=== PATIENT | male | born 1975 | race Hispanic/Latino ===

== ENCOUNTER 2017-04-07 05:51 | Inpatient (IN) | payer BC, MEDICARE ==
[2017-04-02 10:03] VITALS: BMI 32.3
[2017-04-07] MEDS ORDERED: Propofol 10 mg/ml Inj (20 ML) ONE (07:16)
[2017-04-07] MEDS ORDERED: Absorbable Gelatin Sponge Size 100 ONE (07:17)
[2017-04-07] MEDS ORDERED: ceFAZolin IV 1 gm in Dextrose 2 GM/100 ML BAG IVPB ONE (07:17)
[2017-04-07] MEDS ORDERED: Bupivacaine HCl 0.5% PF (30 ml) Inj ONE (07:17)
[2017-04-07] MEDS ORDERED: Thrombin Topical 5,000 IU Spray Kit ONE (07:17)
[2017-04-07] MEDS ORDERED: Lidocaine 2% MPF (5 ml) Inj ONE (07:17)
[2017-04-07] MEDS ORDERED: Bupivacaine HCl 0.25% PF (30 ml) Inj ONE (07:17)
[2017-04-07] MEDS ORDERED: Midazolam 2 MG/2 ML VIAL ONE (07:17)
[2017-04-07] MEDS ORDERED: Lidocaine 2% w Epi 1:100,000 Inj IJ ONE (07:17)
--- NOTE | 2017-04-07 07:17 | CP.PCM.HP ---
History of Present Illness - History of Present Illness History of Present Illness: This is a 41 yo male who presents with progressive LBP. He has a history of thoracic laminectomy at T8-T9 in which he complains of pain in that area however on work up it is revealed he also has stenosis and compression at L2-3 with associated LE radiculopathy and paresthesias. The patient has attempted conservative management such as injections and physical therapy without relief and wishes for surgical management. He denies significant weakness, bladder or bowel incontinence. Present on Admission - Present on Admission Any Indicators Present on Admission: No Review of Systems - Constitutional Constitutional: As Per HPI - Genitourinary Genitourinary: As Per HPI - Neurological Neurological: As Per HPI Past Patient History - Past Medical History & Family History Past Medical History?: Yes - Past Social History Smoking Status: Never Smoked - CARDIAC Hx Cardiac Disorders: No Hx Congestive Heart Failure: No - PULMONARY Hx Respiratory Disorders: No Hx Chronic Obstructive Pulmonary Disease (COPD): No - NEUROLOGICAL Hx Neurological Disorder: Yes HX Cerebrovascular Accident: No Other/Comment: TINGLING HANDS AND FEET - HEENT Hx HEENT Problems: No - RENAL Hx Chronic Kidney Disease: No Hx Renal Failure: No - ENDOCRINE/METABOLIC Hx Endocrine Disorders: No Hx Diabetes Mellitus Type 1: No Hx Diabetes Mellitus Type 2: No Hx Hypothyroidism: No - HEMATOLOGICAL/ONCOLOGICAL Hx Blood Disorders: No Hx AIDS: No Hx Human Immunodeficiency Virus (HIV): No - INTEGUMENTARY Hx Dermatological Problems: No - MUSCULOSKELETAL/RHEUMATOLOGICAL Hx Musculoskeletal Disorders: Yes Hx Arthritis: No Hx Back Pain: Yes (NECK PAIN) Hx Falls: No Hx Rheumatoid Arthritis: No - GASTROINTESTINAL Hx Gastrointestinal Disorders: No - GENITOURINARY/GYNECOLOGICAL Hx Genitourinary Disorders: No - PSYCHIATRIC Hx Psychophysiologic Disorder: No Hx Substance Use: No - SURGICAL HISTORY Hx Surgeries: Yes Hx Orthopedic Surgery: Yes Other/Comment: THORACIC LAMINECTOMY X3.THRORACIC DISSECTOMY 2015 .CERVICAL SX .MEDIAN NERVE BRANCH BLOCK - ANESTHESIA Hx Anesthesia: Yes Hx Anesthesia Reactions: No Hx Malignant Hyperthermia: No Has any member of the family had a problem w/ anesthesia?: No Meds Allergies/Adverse Reactions: Allergies Allergy/AdvReac Type Severity Reaction Status Date / Time No Known Allergies Allergy Verified 10/01/14 14:49 Physical Exam - Constitutional Additional comments: obese - Neurological Exam Additional comments: A&Ox3 CN intact TAPIA Motor 5/5 throughout pain ilicited with movement of IP . Pos SLR BL sensation intact to LT bL Results - Vital Signs Recent Vital Signs: Last Vital Signs Temp 98.3 F 04/07/17 06:29 Pulse 78 04/07/17 06:31 Resp 20 04/07/17 06:29 BP 144/80 04/07/17 06:29 Pulse Ox 96 04/07/17 06:29 - Imaging and Cardiology MRI L spine Additional comment: L2-L3 compression and stenosis T8-T9 vertebral body signal. Assessment & Plan - Assessment and Plan (Free Text) Assessment: Lumbar stenosis Plan: Plan for L2-L3 decompressive laminectomy Risks and benefits explained to the patient about the above. Imaging reviewed and procedure explained. Risks such as infection, hemorrahge, CSF leak, weakness, sensory loss, failure of surgery and/or need for further surgery explained. All questions answered and he wishes to proceed with surgery.
[2017-04-07] MEDS ORDERED: Succinylcholine 200 mg/10 ml Inj IV ONE (07:19)
[2017-04-07] MEDS ORDERED: Rocuronium 10 mg/ml (5 ml) ONE (07:19)
[2017-04-07] MEDS ORDERED: Lactated Ringer's 1,000 ML IV ONE ×2 (07:40→09:11)
[2017-04-07 07:41] LABS: HEMATOCRIT 38.4 % (35.0-51.0); MEAN CORPUSCULAR HEMOGLOBIN 18.6 pg (27.0-31.0); RED CELL DISTRIBUTION WIDTH 16.5 % (11.5-14.5)
[2017-04-07 07:49] LABS: BLOOD UREA NITROGEN 10 mg/dl (9-20); CARBON DIOXIDE 27 mmol/L (22-30); CHLORIDE 104 mmol/L (98-107); GFR AFRICAN-AMERICAN > 60; GLUCOSE,RANDOM 107 mg/dL (75-110); POTASSIUM 4.1 MMOL/L (3.6-5.0); SODIUM 141 mmol/l (132-148)
[2017-04-07] MEDS ORDERED: Lidocaine 2% w Epi 1:200,000 Pf Inj IJ ONE (08:05)
[2017-04-07 08:06] LABS: PARTIAL THROMBOPLASTIN TIME 33.7 Seconds (25.6-37.1)
[2017-04-07] MEDS ORDERED: HEMOSTATIC MATRIX 10 ML DIS.NEEDLE TOP ONE (08:40)
[2017-04-07] MEDS ORDERED: Thrombin Topical 5,000 IU Spray Kit TOP ONE (08:45)
[2017-04-07] MEDS ORDERED: Absorbable Gelatin Sponge Size 100 TP ONE (08:45)
[2017-04-07] MEDS ORDERED: Bupivacaine 0.5% Inj(30mL) IJ ONE ×2 (08:46→09:18)
[2017-04-07] MEDS ORDERED: Neostigmine Methylsulfate 3mg/3ml Syringe IV ONE (08:53)
--- NOTE | 2017-04-07 09:49 | PCM.SURG1 ---
Surgeon's Initial Post Op Note - Surgeon's Notes Surgeon: Ady Villanueva MD Concrete Truck Driver: Srinath VALENTIN Type of Anesthesia: General Endo Anesthesia Administered By: Paul Pre-Operative Diagnosis: Lumbar stenosis Operative Findings: as above Post-Operative Diagnosis: same Operation Performed: Decompressive lumbar laminectomy L2-L3 Specimen/Specimens Removed: none Estimated Blood Loss: EBL {In ML}: 75 Blood Products Given: N/A Drains Used: Michael Parker (x1 ) Post-Op Condition: Good Date of Surgery/Procedure: 04/07/17 Time of Surgery/Procedure: 07:30
[2017-04-07] MEDS ORDERED: oxyCODONE 5 mg Immediate Release Tab PO PRN (10:04)
[2017-04-07] MEDS: HYDROmorphone 0.5 mg/0.5 ml ISec IVP PRN ×7 (10:09→23:25)
[2017-04-07] MEDS ORDERED: HYDROmorphone 0.5 mg/0.5 ml ISec IVP PRN (11:16)
[2017-04-07] MEDS: Lactated Ringer's 1,000 ML IV SCH ×2 (14:30→21:42)
[2017-04-07] MEDS: ceFAZolin IV 1 gm in Dextrose 1 GM/50 ML BAG IVPB SCH (17:12)
[2017-04-07 21:46] VITALS: RESP 20
[2017-04-07] MEDS ORDERED: Docusate-Senna 50 mg-8.6 mg Tab PO SCH (22:00)
[2017-04-08] MEDS: ceFAZolin IV 1 gm in Dextrose 1 GM/50 ML BAG IVPB SCH ×2 (00:37→09:56)
[2017-04-08] MEDS: Lactated Ringer's 1,000 ML IV SCH ×2 (02:00→06:11)
[2017-04-08] MEDS: HYDROmorphone 0.5 mg/0.5 ml ISec IVP PRN ×2 (06:03→10:23)
[2017-04-08 06:29] LABS: MEAN CELL VOLUME 60.2 fl (80.0-94.0); MEAN CORPUSCULAR HEMOGLOBIN 18.6 pg (27.0-31.0); MEAN CORPUSCULAR HGB CONC 30.9 g/dL (33.0-37.0); RED CELL DISTRIBUTION WIDTH 16.5 % (11.5-14.5); WHITE BLOOD COUNT 12.6 K/uL (4.8-10.8)
[2017-04-08 06:36] LABS: BLOOD UREA NITROGEN 9 mg/dl (9-20); CALCIUM 8.7 mg/dL (8.4-10.2); CARBON DIOXIDE 25 mmol/L (22-30); CHLORIDE 105 mmol/L (98-107); GFR AFRICAN-AMERICAN > 60; GLUCOSE,RANDOM 177 mg/dL (75-110); POTASSIUM 4.7 MMOL/L (3.6-5.0); SODIUM 141 mmol/l (132-148)
[2017-04-08 07:07] LABS: IRON 92 ug/dL (49-181)
[2017-04-08 08:14] VITALS: BP 107/60; PULSE 70; TEMP 97.5; O2SAT 96
--- NOTE | 2017-04-08 08:36 | OP ---
PROCEDURE DATE: 04/07/2017 PREOPERATIVE DIAGNOSIS: Lumbar spondylosis. POSTOPERATIVE DIAGNOSIS: Lumbar spondylosis. PROCEDURES: L2-L3 lumbar laminectomy, L2-L3 posterolateral fusion. SURGEON: Dr. Ady Villanueva. SALES AND MARKETING ADMINISTRATOR: BARBIE Toney. Fluoroscopy has been used, microscope has been used. Srinath Clark is the physician desk assistant who stayed throughout the case from the beginning to the end, helped me perform the surgery. DESCRIPTION OF PROCEDURE: The patient was brought to the operating room, anesthetized with general endotracheal anesthesia, placed in a prone position on a Michael table. Care was taken to protect all the pressure points. Back of the lumbar area thoroughly prepped and draped in the same sterile manner after marking the skin incisions for lumbar laminectomy. After prepping and draping the area, skin has been incised. Bleeding skins had been controlled with bipolar oil burner repairer. After using the Bovie oil burner repairer, the paraspinal muscles had been detached from the attachments of spinous process, lamina of L2-L3. Identification of the levels had been done with the help of fluoroscopy. Deep retractors had been applied. Under microscopic magnification and illumination, the spinous process of 2 and 3 have been removed. By using a high speed drill, the drilling is continued on the lamina of L2 and L3. By using a fine Kerrison punch, thinned out the lamina, medial part of the facets and ligamentum flavum has been removed decompressing the area. After that, lateral aspect of facet joint, transverse process has been decorticated, demineralized bone placed in the area achieving a posterolateral fusion. After that, hemostasis was best achieved. Michael drain was placed on the wound and brought out through a separate stab neck skin incision. Muscles and fascia closed with 1 Vicryl, subcutaneous tissue with 3 Vicryl and skin had been closed with intradermal 3 Vicryl stitches. The patient tolerated the procedure. After procedure, mobilized to recovery room in stabilized condition. Ady Villanueva MD
[2017-04-08] MEDS ORDERED: Enoxaparin 40 mg Syringe SC SCH (09:00)
--- NOTE | 2017-04-08 12:14 | CP.PCM.PCO ---
Assessment & Plan - Assessment and Plan (Free Text) Assessment: 41 yr old M w/ pmhx Lumbar stenosis s/p Decomp L2-L5 laminectomy POD#1 MIKEL drain 50 ml overnight- approximately 10 cc this morning pt. feels well, denies fever, chills, numbness, tingling or weakness MIKEL drain removed, tip intact, surgical site c/d/i site covered with 4x4 tegaderm pt. cleared for discharge to Home today by and pt. will f/u with Dr. Villanueva in 1-2 weeks
--- NOTE | 2017-04-08 13:32 | CP.PCM.DIS ---
Provider - Provider Date of Admission: 04/07/17 09:56 Attending physician: Hayder Ernandez MD Primary care physician: Ady Villanueva MD Time Spent in preparation of Discharge (in minutes): 30 Diagnosis - Discharge Diagnosis (1) Status post lumbar laminectomy Status: Acute Comment: s/p Decompressive lumbar laminectomy L2-L3 on POD #1. f/u with Dr. Villanueva in 1-2 weeks Hospital Course - Lab Results Lab Results: Most Recent Lab Values WBC 12.6 K/uL (4.8-10.8) H D 04/08/17 05:30 RBC 5.81 Mil/uL (4.40-5.90) 04/08/17 05:30 Hgb 10.8 g/dL (12.0-18.0) L 04/08/17 05:30 Hct 35.0 % (35.0-51.0) 04/08/17 05:30 MCV 60.2 fl (80.0-94.0) L 04/08/17 05:30 MCH 18.6 pg (27.0-31.0) L 04/08/17 05:30 MCHC 30.9 g/dL (33.0-37.0) L 04/08/17 05:30 RDW 16.5 % (11.5-14.5) H 04/08/17 05:30 Plt Count 173 K/uL (130-400) 04/08/17 05:30 PT 12.8 Seconds (9.8-13.1) 04/07/17 07:10 INR 1.2 (0.9-1.2) 04/07/17 07:10 APTT 33.7 Seconds (25.6-37.1) 04/07/17 07:10 Sodium 141 mmol/l (132-148) 04/08/17 05:30 Potassium 4.7 MMOL/L (3.6-5.0) 04/08/17 05:30 Chloride 105 mmol/L (98-107) 04/08/17 05:30 Carbon Dioxide 25 mmol/L (22-30) 04/08/17 05:30 Anion Gap 16 (10-20) 04/08/17 05:30 BUN 9 mg/dl (9-20) 04/08/17 05:30 Creatinine 0.6 mg/dl (0.8-1.5) L 04/08/17 05:30 Est GFR ( Amer) > 60 04/08/17 05:30 Est GFR (Non-Af Amer) > 60 04/08/17 05:30 Random Glucose 177 mg/dL (75-110) H 04/08/17 05:30 Calcium 8.7 mg/dL (8.4-10.2) 04/08/17 05:30 Iron 92 ug/dL (49-181) 04/08/17 05:30 TIBC 285 ug/dL (250-450) 04/08/17 05:30 % Saturation 32 % (20-55) 04/08/17 05:30 Ferritin 407.0 ng/Ml (17.9-464) 04/08/17 05:30 Blood Type O POSITIVE 04/07/17 07:10 Antibody Screen Negative 04/07/17 07:10 BBK History Checked Patient has bt 04/07/17 07:10 - Hospital Course Hospital Course: 41 yo male with history of thoracic laminectomy at T8-T9, who presents with stenosis and compression at L2-3 with associated LE radiculopathy and paresthesias admitted for Decompressive lumbar laminectomy L2-L3 by Dr. Villanueva. Patient is doing well on POD #1. Pain well control, afebrile, and VS stable WNL. Patient is stable to be discharge home today and will f/u as outpatient with Dr. Villanueva in 1-2 weeks. Patient seen and examined with attending Dr. Ernandez in [facility] unit this morning. No complains at the time of evaluation. - Date & Time of H&P Date of H&P: 04/07/17 Time of H&P: 07:10 Discharge Exam - Eye Exam Eye Exam: Normal appearance - ENT Exam ENT Exam: Mucous Membranes Moist - Respiratory Exam Respiratory Exam: Clear to PA & Lateral, NORMAL BREATHING PATTERN - Cardiovascular Exam Cardiovascular Exam: REGULAR RHYTHM, RRR, +S1, +S2 - GI/Abdominal Exam GI & Abdominal Exam: Normal Bowel Sounds, Soft. absent: Distended, Guarding, Rebound, Rigid - Neurological Exam Neurological exam: Alert, Oriented x3 - Skin Skin Exam: Dry, Intact, Normal Color Discharge Plan - Follow Up Plan Condition: GOOD Disposition: HOME/ ROUTINE Patient education suggested?: Yes Instructions: Laminectomy (DC) Additional Instructions: May not wet operative area for the next 3 days; follow-up with Dr. Villanueva in 2 weeks Referrals: Ady Villanueva MD [Primary Care Provider] - Hayder Ernandez MD [Staff Provider] -
--- NOTE | 2017-04-09 11:02 | RAD ---
PROCEDURE: Intraoperative Fluoroscopy. HISTORY: LUMBER FINDINGS: Fluoroscopic assistance was provided. Please refer to the operative
== END 2017-04-08 12:38 | disposition home or self-care (01) | DRG 460 ==
LOC: H.OPSURG 05:51 → H.MEDSURG1 09:56
PROVIDERS: ADMIT Family Medicine; ATTEND Family Medicine
PROC: 0SG00J1 Fusion of Lumbar Vertebral Joint with Synthetic Substitute, Posterior Approach, Posterior Column, Open Approach (ICD-10-PCS; principal; 2017-04-07 07:45)
DX: M48.061 Spinal stenosis, lumbar region without neurogenic claudication (principal); M47.26 Other spondylosis with radiculopathy, lumbar region; R20.2 Paresthesia of skin

== ENCOUNTER 2017-08-04 06:06 | Observation (INO) | payer BC, MEDICARE ==
[2017-08-03 15:36] VITALS: BMI 30.3
[2017-08-04 07:11] LABS: BASO # 0.1 K/uL (0.0-0.2); BASO % 0.8 % (0.0-2.0); EOS # 0.2 K/uL (0.0-0.7); EOS % 3.3 % (0.0-4.0); HEMOGLOBIN 12.5 g/dL (12.0-18.0); LYMPH # 2.8 K/uL (1.0-4.3); LYMPH % 38.5 % (20.0-40.0); MEAN CELL VOLUME 58.8 fl (80.0-94.0); MEAN CORPUSCULAR HEMOGLOBIN 19.2 pg (27.0-31.0); MEAN CORPUSCULAR HGB CONC 32.6 g/dL (33.0-37.0); MEAN PLATELET VOLUME 8.7 fl (7.2-11.7); MONO # 0.7 K/uL (0.0-0.8); MONO % 9.3 % (0.0-10.0); NEUT # 3.5 K/uL (1.8-7.0); NEUT % 48.1 % (50.0-75.0); NRBC % 0.1 % (0.0-0.0); RBC 6.53 Mil/uL (4.40-5.90); WHITE BLOOD COUNT 7.2 K/uL (4.8-10.8)
[2017-08-04 07:17] LABS: ALB/GLOB RATIO 1.3 (1.0-2.1); ALBUMIN 4.4 g/dL (3.5-5.0); ALT/SGPT 66 U/L (21-72); AST/SGOT 35 U/L (17-59); BLOOD UREA NITROGEN 18 mg/dl (9-20); CALCIUM 9.3 mg/dL (8.4-10.2); GFR AFRICAN-AMERICAN > 60; GFR NON-AFRICAN AMERICAN > 60
[2017-08-04] MEDS ORDERED: Propofol 10 mg/ml Inj (20 ML) ONE ×2 (07:29→08:57)
[2017-08-04] MEDS ORDERED: Succinylcholine 200 mg/10 ml Inj IV ONE (07:33)
[2017-08-04] MEDS ORDERED: ceFAZolin IV 1 gm in Dextrose 2 GM/100 ML BAG IVPB ONE (07:34)
[2017-08-04] MEDS ORDERED: Lidocaine 1% w Epi 1:100,000 Inj ONE (07:34)
[2017-08-04] MEDS ORDERED: Bupivacaine HCl 0.25% PF (30 ml) Inj ONE (07:34)
[2017-08-04] MEDS ORDERED: Absorbable Gelatin Sponge Size 100 ONE (07:35)
[2017-08-04] MEDS ORDERED: Thrombin Topical 5,000 Int Units Spray Kit ONE (07:35)
[2017-08-04 07:36] LABS: INR 1.2 (0.9-1.2); PROTHROMBIN TIME 12.8 Seconds (9.8-13.1)
--- NOTE | 2017-08-04 07:36 | CP.PCM.CON ---
History of Present Illness - History of Present Illness History of Present Illness: 41 yo right hand dominant handed male with long standing hx spinal stenosis, spondylosis and instability> 10 years and progressively worsening with inability to work,s/p multiple cervical,thoracic and lumbar decompressions with some relief,multiple epidural injections,prescribed meds and ongoing PT with minimal relief,going neck pain radiating to BUE with paresthesias,drops objects, outpt MRI showing recurrent cervical spondylosis and stenosis,denies trauma,LE symptoms,bowel/bladder incontinence. 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 Alcohol: None Drugs: Denies Home Situation {Lives}: With Family Domestic Violence: Negative - CARDIAC Hx Cardiac Disorders: No Hx Congestive Heart Failure: No - PULMONARY Hx Respiratory Disorders: No Hx Chronic Obstructive Pulmonary Disease (COPD): No - NEUROLOGICAL Hx Neurological Disorder: Yes HX Cerebrovascular Accident: No Other/Comment: TINGLING HANDS AND FEET - HEENT Hx HEENT Problems: No - RENAL Hx Chronic Kidney Disease: No Hx Renal Failure: No - ENDOCRINE/METABOLIC Hx Endocrine Disorders: No Hx Diabetes Mellitus Type 1: No Hx Diabetes Mellitus Type 2: No Hx Hypothyroidism: No - HEMATOLOGICAL/ONCOLOGICAL Hx Blood Disorders: No Hx AIDS: No Hx Human Immunodeficiency Virus (HIV): No - INTEGUMENTARY Hx Dermatological Problems: No - MUSCULOSKELETAL/RHEUMATOLOGICAL Hx Musculoskeletal Disorders: Yes Hx Arthritis: No Hx Back Pain: Yes (NECK PAIN) Hx Falls: No Hx Rheumatoid Arthritis: No - GASTROINTESTINAL Hx Gastrointestinal Disorders: No - GENITOURINARY/GYNECOLOGICAL Hx Genitourinary Disorders: No - PSYCHIATRIC Hx Psychophysiologic Disorder: No Hx Substance Use: No - SURGICAL HISTORY Hx Surgeries: Yes Hx Orthopedic Surgery: Yes Other/Comment: THORACIC LAMINECTOMY X3.THRORACIC DISSECTOMY 2015 .CERVICAL SX .MEDIAN NERVE BRANCH BLOCK - ANESTHESIA Hx Anesthesia: Yes Hx Anesthesia Reactions: No Hx Malignant Hyperthermia: No Meds Allergies/Adverse Reactions: Allergies Allergy/AdvReac Type Severity Reaction Status Date / Time No Known Allergies Allergy Verified 08/03/17 15:35 Physical Exam - Constitutional Appears: Well, Non-toxic, No Acute Distress - Head Exam Head Exam: ATRAUMATIC, NORMAL INSPECTION, NORMOCEPHALIC - Eye Exam Eye Exam: EOMI, Normal appearance, PERRL Pupil Exam: NORMAL ACCOMODATION - ENT Exam ENT Exam: Mucous Membranes Moist - Neck Exam Additional comments: healed anterior cervical scar - Respiratory Exam Respiratory Exam: Clear to Auscultation Bilateral, NORMAL BREATHING PATTERN - Cardiovascular Exam Cardiovascular Exam: REGULAR RHYTHM, +S1, +S2 - GI/Abdominal Exam GI & Abdominal Exam: Normal Bowel Sounds, Soft - Rectal Exam Rectal Exam: Deferred - Extremities Exam Extremities exam: Positive for: normal inspection, pedal pulses present - Back Exam Additional comments: healed surgical scars,thoracica nd lumbar tenderness to palpation - Neurological Exam Neurological exam: Alert, Oriented x3 Additional comments: TAPIA x 4 antigravity with BUE weakness 4-5,sensation intact - Psychiatric Exam Psychiatric exam: Normal Affect, Normal Mood - Skin Skin Exam: Dry, Intact, Normal Color Results - Vital Signs Recent Vital Signs: Last Vital Signs Temp 98.1 F 08/04/17 06:30 Pulse 60 08/04/17 06:30 Resp 18 08/04/17 06:30 BP 120/77 08/04/17 06:30 Pulse Ox 96 08/04/17 06:30 - Labs Result Diagrams: 08/04/17 06:40 08/04/17 06:40 Labs: Laboratory Results - last 24 hr 08/04/17 08/04/17 06:40 06:40 WBC 7.2 RBC 6.53 H Hgb 12.5 Hct 38.3 MCV 58.8 L MCH 19.2 L MCHC 32.6 L RDW 17.0 H Plt Count 215 MPV 8.7 Neut % (Auto) 48.1 L Lymph % (Auto) 38.5 Cuming % (Auto) 9.3 Eos % (Auto) 3.3 Baso % (Auto) 0.8 Neut # (Auto) 3.5 Lymph # (Auto) 2.8 Cuming # (Auto) 0.7 Eos # (Auto) 0.2 Baso # (Auto) 0.1 Sodium 142 Potassium 4.4 Chloride 103 Carbon Dioxide 27 Anion Gap 16 BUN 18 Creatinine 0.7 L Est GFR ( Amer) > 60 Est GFR (Non-Af Amer) > 60 Random Glucose 102 Calcium 9.3 Total Bilirubin 0.7 AST 35 ALT 66 Alkaline Phosphatase 56 Total Protein 7.8 Albumin 4.4 Globulin 3.4 Albumin/Globulin Ratio 1.3 Assessment & Plan - Assessment and Plan (Free Text) Assessment: 41 yo male with Recurrent Cervical C5-C6 Spondylosis, BUE Myelopathy, longstanding hx spinal stenosis Plan: Risks and benefits of surgery d/w pt, expressed understanding and wishes to proceed here for proposed C5-C6 Posterior Cervical Decompression with Dr. Villanueva. - Date & Time Date: 08/04/17 Time: 07:00
[2017-08-04 07:37] LABS: PARTIAL THROMBOPLASTIN TIME 35.8 Seconds (25.6-37.1)
[2017-08-04] MEDS ORDERED: Lactated Ringer's 1,000 ML IV ONE (07:50)
[2017-08-04] MEDS ORDERED: Rocuronium 10 mg/ml (5 ml) ONE ×2 (08:00→08:16)
[2017-08-04] MEDS ORDERED: Esmolol 100 mg/10ml Inj IV ONE (08:08)
[2017-08-04] MEDS ORDERED: Lidocaine 1% w Epi 1:100,000 Inj INJ ONE (08:15)
[2017-08-04] MEDS ORDERED: Neostigmine 1:1000 (1 mg/ml) Inj ONE (08:37)
[2017-08-04] MEDS ORDERED: HEMOSTATIC MATRIX 10 ML DIS.NEEDLE TOP ONE (08:40)
[2017-08-04] MEDS ORDERED: Thrombin Topical 5,000 Int Units Spray Kit TOP ONE (08:45)
[2017-08-04] MEDS ORDERED: Absorbable Gelatin Sponge Size 100 TP ONE (08:45)
[2017-08-04] MEDS ORDERED: Naloxone 0.4 mg/ml Inj (Adult) ONE (08:53)
[2017-08-04] MEDS ORDERED: Bupivacaine HCl 0.25% PF (30 ml) Inj IJ ONE (09:00)
[2017-08-04] MEDS ORDERED: Dexamethasone 4 mg/1 ml ONE (09:04)
[2017-08-04] MEDS ORDERED: Trimethobenzamide 200 mg/2 mL Inj IM PRN (09:19)
[2017-08-04] MEDS ORDERED: Morphine 4 MG/ML VIAL ONE ×4 (09:27→10:15)
[2017-08-04] MEDS ORDERED: Dexamethasone 4 MG in Sodium Chloride 0.9% 50 ML IVPB SCH (10:00)
[2017-08-04] MEDS ORDERED: Morphine 4 MG/ML VIAL IVP PRN (10:30)
[2017-08-04] MEDS: Lactated Ringer's 1,000 ML IV SCH ×3 (11:09→21:24)
--- NOTE | 2017-08-04 12:16 | CP.PCM.HP ---
<Apolinar Siddiqui - Last Filed: 08/04/17 12:08> History of Present Illness - History of Present Illness History of Present Illness: CC: s/p cervical decompression C5-C6 HPI: 41 y/o man w/ pmh of spinal stenosis, spondylosis, and s/p multiple cervical,thoracic and lumbar decompressions presents for cervical decompression of C5-C6. The patient has had multiple epidural injections, prescribed medications, and ongoing PT with minimal relief. Patient has ongoing neck pain radiating to bilateral upper extremities with paresthesias, also drops objects. Patient had MRI showing recurrent cervical spondylosis and stenosis. Patient denies trauma, LE symptoms, bowel/bladder incontinence. The patient denies headaches, chest pain, SOB, abdominal pain, nausea, vomiting, diarrhea, or dysuria. Patient reports pain and discomfort at surgery site. PMD: Dr. Gregg Crawley ([place]) PMH: spinal stenosis, spondylosis meds: see med list PSH: x2 cervical decompressions, x7 thoracic decompressions, x2 lumbar decompressions Fam: denies SOC: denies smoking, alcohol, and drugs ROS: 12 points assessed and negative unless otherwise reported in HPI Present on Admission - Present on Admission Any Indicators Present on Admission: No History of DVT/PE: No History of Uncontrolled Diabetes: No Urinary Catheter: No Decubitus Ulcer Present: No Review of Systems - Review of Systems All systems: reviewed and no additional remarkable complaints except - Constitutional Constitutional: absent: Chills, Fever - EENT Eyes: absent: Change in Vision - Cardiovascular Cardiovascular: absent: Chest Pain, Irregular Heart Rhythm, Pedal Edema - Respiratory Respiratory: absent: Dyspnea, Wheezing - Gastrointestinal Gastrointestinal: absent: Abdominal Pain, Diarrhea, Nausea, Vomiting - Genitourinary Genitourinary: absent: Dysuria - Integumentary Integumentary: absent: Rash - Neurological Neurological: absent: Dizziness, Headaches, Vertigo Past Patient History - Infectious Disease Hx of Infectious Diseases: None - Tetanus Immunizations Tetanus Immunization: Unknown - Past Medical History & Family History Past Medical History?: Yes - Past Social History Smoking Status: Never Smoked Cigar Use: No 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 Alcohol: None Drugs: Denies Home Situation {Lives}: With Family Domestic Violence: Negative - CARDIAC Hx Cardiac Disorders: No Hx Congestive Heart Failure: No - PULMONARY Hx Respiratory Disorders: No Hx Chronic Obstructive Pulmonary Disease (COPD): No - NEUROLOGICAL Hx Neurological Disorder: Yes HX Cerebrovascular Accident: No Other/Comment: TINGLING HANDS AND FEET - HEENT Hx HEENT Problems: No - RENAL Hx Chronic Kidney Disease: No Hx Renal Failure: No - ENDOCRINE/METABOLIC Hx Endocrine Disorders: No Hx Diabetes Mellitus Type 1: No Hx Diabetes Mellitus Type 2: No Hx Hypothyroidism: No - HEMATOLOGICAL/ONCOLOGICAL Hx Blood Disorders: No Hx AIDS: No Hx Human Immunodeficiency Virus (HIV): No - INTEGUMENTARY Hx Dermatological Problems: No - MUSCULOSKELETAL/RHEUMATOLOGICAL Hx Musculoskeletal Disorders: Yes Hx Arthritis: No Hx Back Pain: Yes (NECK PAIN) Hx Falls: No Hx Rheumatoid Arthritis: No - GASTROINTESTINAL Hx Gastrointestinal Disorders: No - GENITOURINARY/GYNECOLOGICAL Hx Genitourinary Disorders: No - PSYCHIATRIC Hx Psychophysiologic Disorder: No Hx Substance Use: No - SURGICAL HISTORY Hx Surgeries: Yes Hx Orthopedic Surgery: Yes Other/Comment: THORACIC LAMINECTOMY X3.THRORACIC DISSECTOMY 2015 .CERVICAL SX .MEDIAN NERVE BRANCH BLOCK - ANESTHESIA Hx Anesthesia: Yes Hx Anesthesia Reactions: No Hx Malignant Hyperthermia: No Meds Allergies/Adverse Reactions: Allergies Allergy/AdvReac Type Severity Reaction Status Date / Time No Known Allergies Allergy Verified 08/03/17 15:35 Physical Exam - Constitutional Appears: Non-toxic, No Acute Distress - Head Exam Head Exam: NORMAL INSPECTION, NORMOCEPHALIC Additional comments: s/p cervical decompressions C5-C6, has neck collar support on, has MIKEL drain ( draining 25-30cc serosanguinous fluid) - Eye Exam Eye Exam: Normal appearance - ENT Exam ENT Exam: Mucous Membranes Moist - Neck Exam Neck exam: Negative for: Full Rom, Tenderness Additional comments: patient wearing neck support collar - Respiratory Exam Respiratory Exam: Clear to Auscultation Bilateral. absent: Accessory Muscle Use , Decreased Breath Sounds, Rales, Rhonchi, Wheezes, Respiratory Distress - Cardiovascular Exam Cardiovascular Exam: REGULAR RHYTHM. absent: Tachycardia - GI/Abdominal Exam GI & Abdominal Exam: Normal Bowel Sounds, Soft. absent: Distended, Tenderness - Extremities Exam Extremities exam: Positive for: normal inspection. Negative for: calf tenderness, pedal edema, tenderness - Neurological Exam Neurological exam: Alert, Oriented x3 - Skin Skin Exam: Dry, Intact, Normal Color, Warm Results - Vital Signs Recent Vital Signs: Last Vital Signs Temp 97.6 F 08/04/17 09:55 Pulse 59 L 08/04/17 10:55 Resp 20 08/04/17 10:55 BP 138/76 08/04/17 10:55 Pulse Ox 99 08/04/17 10:55 - Labs Result Diagrams: 08/04/17 06:40 08/04/17 06:40 Labs: Laboratory Results - last 24 hr 08/04/17 08/04/17 08/04/17 06:40 06:40 06:40 WBC 7.2 RBC 6.53 H Hgb 12.5 Hct 38.3 MCV 58.8 L MCH 19.2 L MCHC 32.6 L RDW 17.0 H Plt Count 215 MPV 8.7 Neut % (Auto) 48.1 L Lymph % (Auto) 38.5 Holmes % (Auto) 9.3 Eos % (Auto) 3.3 Baso % (Auto) 0.8 Neut # (Auto) 3.5 Lymph # (Auto) 2.8 Holmes # (Auto) 0.7 Eos # (Auto) 0.2 Baso # (Auto) 0.1 PT 12.8 INR 1.2 APTT 35.8 Sodium 142 Potassium 4.4 Chloride 103 Carbon Dioxide 27 Anion Gap 16 BUN 18 Creatinine 0.7 L Est GFR ( Amer) > 60 Est GFR (Non-Af Amer) > 60 Random Glucose 102 Calcium 9.3 Total Bilirubin 0.7 AST 35 ALT 66 Alkaline Phosphatase 56 Total Protein 7.8 Albumin 4.4 Globulin 3.4 Albumin/Globulin Ratio 1.3 Blood Type Antibody Screen BBK History Checked 08/04/17 06:40 WBC RBC Hgb Hct MCV MCH MCHC RDW Plt Count MPV Neut % (Auto) Lymph % (Auto) Holmes % (Auto) Eos % (Auto) Baso % (Auto) Neut # (Auto) Lymph # (Auto) Holmes # (Auto) Eos # (Auto) Baso # (Auto) PT INR APTT Sodium Potassium Chloride Carbon Dioxide Anion Gap BUN Creatinine Est GFR ( Amer) Est GFR (Non-Af Amer) Random Glucose Calcium Total Bilirubin AST ALT Alkaline Phosphatase Total Protein Albumin Globulin Albumin/Globulin Ratio Blood Type O POSITIVE Antibody Screen Negative BBK History Checked Patient has bt Assessment & Plan (1) S/P laminectomy Status: Acute (2) Chronic pain disorder Status: Chronic - Assessment and Plan (Free Text) Plan: c/w present management s/p cervical laminectomy C5-C6 MIKEL drain produced 25-30cc serosanguinous fluid pain management - flexeril 10 mg PO TID prn - fentanyl patch 100 mcg/hr Q3d - 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
[2017-08-04] MEDS ORDERED: FENTANYL IV SCH (12:30)
[2017-08-04] MEDS: Dexamethasone 4 mg/1 ml IVP SCH (16:36)
[2017-08-04] MEDS: ceFAZolin 2 GM in Sodium Chloride 0.9% 100 ML IVPB SCH (16:36)
--- NOTE | 2017-08-04 17:01 | RAD ---
PROCEDURE: HISTORY: As above COMPARISON: None TECHNIQUE: Total fluoroscopic time utilized during the procedure: 7.4 seconds ; 1.53 mGy cm 2 FINDINGS: Submitted images from the current procedure: 1 Please refer to the physician's notes performing the procedure. IMPRESSION: Less than 1 hour fluoroscopic time utilized during performance of the procedure
[2017-08-05] MEDS: ceFAZolin 2 GM in Sodium Chloride 0.9% 100 ML IVPB SCH ×2 (01:40→09:37)
[2017-08-05] MEDS: Dexamethasone 4 mg/1 ml IVP SCH ×2 (01:50→09:38)
[2017-08-05] MEDS: Lactated Ringer's 1,000 ML IV SCH (01:51)
[2017-08-05 08:52] VITALS: BP 147/80; PULSE 65; RESP 20; TEMP 98.2; O2SAT 94
[2017-08-05] MEDS ORDERED: Enoxaparin 40 mg Syringe SC SCH (09:00)
--- NOTE | 2017-08-05 09:13 | CP.PCM.PN ---
Subjective - Date & Time of Evaluation Date of Evaluation: 08/05/17 Time of Evaluation: 09:13 - Subjective Subjective: Patient was seen and examined at bedside comfortable. Pain well controlled. Able to get OOB to ambulate w/o difficulty. No acute events overnight. Patient wishes to be discharged to home today. Objective - Vital Signs/Intake and Output Vital Signs (last 24 hours): Temp Pulse Resp BP Pulse Ox 98.2 F 65 20 147/80 94 L 08/05/17 08:51 08/05/17 08:51 08/05/17 08:51 08/05/17 08:51 08/05/17 08:51 Intake and Output: 08/05/17 08/05/17 06:59 18:59 Intake Total 1740 Output Total 2560 Balance -820 - Medications Medications: Current Medications Acetaminophen (Tylenol 325mg Tab) 650 mg PO Q4 PRN PRN Reason: Fever 101 degrees fahrenheit Cyclobenzaprine HCl (Flexeril) 10 mg PO TID PRN PRN Reason: Muscle spasm Dexamethasone (Decadron Inj) 4 mg IVP Q8 [facility] Last Admin: 08/05/17 01:50 Dose: 4 mg Docusate Sodium (Colace) 100 mg PO BID [facility] Last Admin: 08/04/17 16:36 Dose: 100 mg Enoxaparin Sodium (Lovenox) 40 mg SC DAILY [facility] PRN Reason: Protocol Fentanyl (Duragesic) 1 patch TD Q3D RAY PRN Reason: Protocol Last Admin: 08/05/17 07:22 Dose: 1 patch Cefazolin Sodium 2 gm/ Sodium (Chloride) 100 mls @ 100 mls/hr IVPB Q8 RAY PRN Reason: Protocol Stop: 08/07/17 17:59 Last Admin: 08/05/17 01:40 Dose: 100 mls/hr Lactated Ringer's (Lactated Ringer's) 1,000 mls @ 125 mls/hr IV .Q8H [facility] Last Admin: 08/05/17 01:51 Dose: Not Given Morphine Sulfate (Morphine [employer] 1 Mg/Ml) 30 mg IV Q4 PRN; Protocol PRN Reason: Pain, severe (8-10) Stop: 08/06/17 02:13 Last Admin: 08/05/17 02:39 Dose: 30 mg Trimethobenzamide HCl (Tigan) 200 mg IM Q8 PRN PRN Reason: Nausea/Vomiting - Labs Labs: 08/04/17 06:40 08/04/17 06:40 PT 12.8 Seconds (9.8-13.1) 08/04/17 06:40 INR 1.2 (0.9-1.2) 08/04/17 06:40 APTT 35.8 Seconds (25.6-37.1) 08/04/17 06:40 - Neck Exam Additional comments: -mild tenderness globally secondary to surgery. dressings clean and dry, wound c /d/i. Drain in place with mild sangiunous fluid output (160cc) overnight, ROM slightly restricted secondary to pain. sensation and motor intact MN/UN/RN. radial pulses intact Assessment and Plan (1) Cervical spondylosis with myelopathy Assessment & Plan: POD#1 C5-C6 posterior decompression -High drain output, will keep in and allow patient to be discharged home -patient will return to office tomorrow for follow up and will have drain removed by Dr. Villanueva -pain control with narcotics and muscle relaxants -continue outpt abx with keflex while drain is in -Encourage OOB -above d/w Dr. Villanueva in agreement Status: Acute
--- NOTE | 2017-08-05 09:59 | OP ---
PROCEDURE DATE: 08/04/2017 PREOPERATIVE DIAGNOSIS: Cervical spondylosis. POSTOPERATIVE DIAGNOSIS: Cervical spondylosis. PROCEDURE: C5-6 cervical laminectomy, decompression, head control clerk has been used, microscope has been used. SURGEON: Ady Villanueva MD NATURAL RESOURCES EXTENSION EDUCATOR: BARBIE Xiao. [place] is a physician chiropractic assistant who helped me perform the surgery from the beginning to the end. DESCRIPTION OF PROCEDURE: The patient was brought to the operating room, anesthetized with general endotracheal anesthesia. The head was placed in a 3-pin Diaz head control clerk. The patient was placed in a prone position. The head control clerk had been clamped to the bed. Care was taken to protect all the pressure points. Back of the cervical area thoroughly prepped and draped in same sterile manner after marking was consistent for cervical laminectomy. After prepping and draping, the skin has been incised. Bleeding skins have been controlled with bipolar mica miner. After using a Bovie mica miner, paraspinal muscles have been detached, attachments of spinous process, lamina of C5-6, deep retractors have been applied. Identification of levels has been done with the help of fluoroscopy. Microscope has been brought in, rest of the operation carried with microscopic magnification and illumination. At this point, by using a Leksell rongeur, the spinous process of C5-6 has been removed. By using THE high-speed drill, the lamina of C5-6 drilled to actual thickness. By using a fine Kerrison punch, thinned out the lamina, medial part of the facets and ligamentum flavum has been removed, decompressing this area. After that hemostasis was best achieved. Michael drain was placed in the wound, brought out through a separate stab neck skin incision. Muscles and fascia were closed with 1 Vicryl, subcutaneous tissue with 3 Vicryl and skin had been with intradermal 3 Vicryl stitches. The patient tolerated the procedure, and after procedure, mobilized to the recovery room in stabilized condition. Ady Villanueva MD
--- NOTE | 2017-08-05 12:31 | CP.PCM.DIS ---
<Apolinar Siddiqui - Last Filed: 08/05/17 12:26> Provider - Provider Date of Admission: 08/04/17 14:03 Attending physician: Hayder Ernandez MD Primary care physician: Ady Villanueva MD Time Spent in preparation of Discharge (in minutes): 15 Diagnosis - Discharge Diagnosis (1) S/P laminectomy Status: Acute (2) Chronic pain disorder Status: Chronic Hospital Course - Lab Results Lab Results: Most Recent Lab Values WBC 7.2 K/uL (4.8-10.8) 08/04/17 06:40 RBC 6.53 Mil/uL (4.40-5.90) H 08/04/17 06:40 Hgb 12.5 g/dL (12.0-18.0) 08/04/17 06:40 Hct 38.3 % (35.0-51.0) 08/04/17 06:40 MCV 58.8 fl (80.0-94.0) L 08/04/17 06:40 MCH 19.2 pg (27.0-31.0) L 08/04/17 06:40 MCHC 32.6 g/dL (33.0-37.0) L 08/04/17 06:40 RDW 17.0 % (11.5-14.5) H 08/04/17 06:40 Plt Count 215 K/uL (130-400) 08/04/17 06:40 MPV 8.7 fl (7.2-11.7) 08/04/17 06:40 Neut % (Auto) 48.1 % (50.0-75.0) L 08/04/17 06:40 Lymph % (Auto) 38.5 % (20.0-40.0) 08/04/17 06:40 Hardee % (Auto) 9.3 % (0.0-10.0) 08/04/17 06:40 Eos % (Auto) 3.3 % (0.0-4.0) 08/04/17 06:40 Baso % (Auto) 0.8 % (0.0-2.0) 08/04/17 06:40 Neut # (Auto) 3.5 K/uL (1.8-7.0) 08/04/17 06:40 Lymph # (Auto) 2.8 K/uL (1.0-4.3) 08/04/17 06:40 Hardee # (Auto) 0.7 K/uL (0.0-0.8) 08/04/17 06:40 Eos # (Auto) 0.2 K/uL (0.0-0.7) 08/04/17 06:40 Baso # (Auto) 0.1 K/uL (0.0-0.2) 08/04/17 06:40 PT 12.8 Seconds (9.8-13.1) 08/04/17 06:40 INR 1.2 (0.9-1.2) 08/04/17 06:40 APTT 35.8 Seconds (25.6-37.1) 08/04/17 06:40 Sodium 142 mmol/l (132-148) 08/04/17 06:40 Potassium 4.4 MMOL/L (3.6-5.0) 08/04/17 06:40 Chloride 103 mmol/L (98-107) 08/04/17 06:40 Carbon Dioxide 27 mmol/L (22-30) 08/04/17 06:40 Anion Gap 16 (10-20) 08/04/17 06:40 BUN 18 mg/dl (9-20) 08/04/17 06:40 Creatinine 0.7 mg/dl (0.8-1.5) L 08/04/17 06:40 Est GFR ( Amer) > 60 08/04/17 06:40 Est GFR (Non-Af Amer) > 60 08/04/17 06:40 Random Glucose 102 mg/dL (75-110) 08/04/17 06:40 Calcium 9.3 mg/dL (8.4-10.2) 08/04/17 06:40 Total Bilirubin 0.7 mg/dl (0.2-1.3) 08/04/17 06:40 AST 35 U/L (17-59) 08/04/17 06:40 ALT 66 U/L (21-72) 08/04/17 06:40 Alkaline Phosphatase 56 U/L (38-126) 08/04/17 06:40 Total Protein 7.8 G/DL (6.3-8.2) 08/04/17 06:40 Albumin 4.4 g/dL (3.5-5.0) 08/04/17 06:40 Globulin 3.4 gm/dL (2.2-3.9) 08/04/17 06:40 Albumin/Globulin Ratio 1.3 (1.0-2.1) 08/04/17 06:40 Blood Type O POSITIVE 08/04/17 06:40 Antibody Screen Negative 08/04/17 06:40 BBK History Checked Patient has bt 08/04/17 06:40 - Hospital Course Hospital Course: 41 y/o man w/ pmh of spinal stenosis, spondylosis, and s/p multiple cervical, thoracic and lumbar decompressions presents for cervical decompression of C5- C6. Patient recovering well POD1. BURKE drain has minimal drainage. Patient reports is ambulatory and has gas/bowel movement this morning. Patient recovering appropriately after procedure. Patient denies trauma, LE symptoms, bowel/bladder incontinence. The patient denies headaches, chest pain, SOB, abdominal pain, nausea, vomiting, diarrhea, or dysuria. Patient reports mild pruritus at surgery site. The patient has been seen, examined, and deemed medically fit for discharge home. Patient will be DC'ed w/ BURKE drain that will be evaluated by Dr. Villanueva in his office tomorrow. The patient will be discharge w/ cephalexin 500 mg PO TID for 2 days, flexeril 10 mg PO TID for 7 days, and hydrocortisone 2.5% topical cream. Discharge Exam - Head Exam Head Exam: NORMAL INSPECTION, NORMOCEPHALIC Additional comments: s/p cervical decompressions C5-C6, has neck collar support on, has BURKE drain ( draining 5-10cc serosanguinous fluid) - Eye Exam Eye Exam: Normal appearance - ENT Exam ENT Exam: Mucous Membranes Moist - Neck Exam Additional comments: patient wearing neck support collar - Respiratory Exam Respiratory Exam: Clear to PA & Lateral, NORMAL BREATHING PATTERN. absent: Accessory Muscle Use, Decreased Breath Sounds, Rales, Rhonchi, Wheezes, Respiratory Distress - Cardiovascular Exam Cardiovascular Exam: REGULAR RHYTHM. absent: Tachycardia - GI/Abdominal Exam GI & Abdominal Exam: Normal Bowel Sounds, Soft. absent: Diminished Bowel Sounds , Tenderness - Extremities Exam Extremities exam: normal inspection - Neurological Exam Neurological exam: Alert, Normal Gait, Oriented x3 - Skin Skin Exam: Dry, Intact, Normal Color, Warm Discharge Plan - Discharge Medications Prescriptions: Cephalexin [cephalexin] 500 mg PO TID #6 cap Cyclobenzaprine [Flexeril] 10 mg PO TID PRN #21 tab PRN Reason: Muscle Spasm - Follow Up Plan Condition: GOOD Instructions: Michael-Parker Drain, Laminectomy (DC) Additional Instructions: follow up with your primary MD Dr. Gregg Crawley 1week pt. cleared for discharge to home today by and - pt. to be d/c with burke drain as per dr Villanueva- pt. will see dr Marija Villanueva in office tomorrow rx for meds provided I was present during evaluation and discussed with Dr Siddiqui re plans of care and mgt. Hayder Ernandez M.D. Referrals: Ady Villanueva MD [Primary Care Provider] - <Hayder Ernandez - Last Filed: 08/05/17 21:45> Provider - Provider Date of Admission: 08/04/17 14:03 Attending physician: Hayder Ernandez MD Primary care physician: Ady Villanueva MD Hospital Course - Lab Results Lab Results: Most Recent Lab Values WBC 7.2 K/uL (4.8-10.8) 08/04/17 06:40 RBC 6.53 Mil/uL (4.40-5.90) H 08/04/17 06:40 Hgb 12.5 g/dL (12.0-18.0) 08/04/17 06:40 Hct 38.3 % (35.0-51.0) 08/04/17 06:40 MCV 58.8 fl (80.0-94.0) L 08/04/17 06:40 MCH 19.2 pg (27.0-31.0) L 08/04/17 06:40 MCHC 32.6 g/dL (33.0-37.0) L 08/04/17 06:40 RDW 17.0 % (11.5-14.5) H 08/04/17 06:40 Plt Count 215 K/uL (130-400) 08/04/17 06:40 MPV 8.7 fl (7.2-11.7) 08/04/17 06:40 Neut % (Auto) 48.1 % (50.0-75.0) L 08/04/17 06:40 Lymph % (Auto) 38.5 % (20.0-40.0) 08/04/17 06:40 Hardee % (Auto) 9.3 % (0.0-10.0) 08/04/17 06:40 Eos % (Auto) 3.3 % (0.0-4.0) 08/04/17 06:40 Baso % (Auto) 0.8 % (0.0-2.0) 08/04/17 06:40 Neut # (Auto) 3.5 K/uL (1.8-7.0) 08/04/17 06:40 Lymph # (Auto) 2.8 K/uL (1.0-4.3) 08/04/17 06:40 Hardee # (Auto) 0.7 K/uL (0.0-0.8) 08/04/17 06:40 Eos # (Auto) 0.2 K/uL (0.0-0.7) 08/04/17 06:40 Baso # (Auto) 0.1 K/uL (0.0-0.2) 08/04/17 06:40 PT 12.8 Seconds (9.8-13.1) 08/04/17 06:40 INR 1.2 (0.9-1.2) 08/04/17 06:40 APTT 35.8 Seconds (25.6-37.1) 08/04/17 06:40 Sodium 142 mmol/l (132-148) 08/04/17 06:40 Potassium 4.4 MMOL/L (3.6-5.0) 08/04/17 06:40 Chloride 103 mmol/L (98-107) 08/04/17 06:40 Carbon Dioxide 27 mmol/L (22-30) 08/04/17 06:40 Anion Gap 16 (10-20) 08/04/17 06:40 BUN 18 mg/dl (9-20) 08/04/17 06:40 Creatinine 0.7 mg/dl (0.8-1.5) L 08/04/17 06:40 Est GFR ( Amer) > 60 08/04/17 06:40 Est GFR (Non-Af Amer) > 60 08/04/17 06:40 Random Glucose 102 mg/dL (75-110) 08/04/17 06:40 Calcium 9.3 mg/dL (8.4-10.2) 08/04/17 06:40 Total Bilirubin 0.7 mg/dl (0.2-1.3) 08/04/17 06:40 AST 35 U/L (17-59) 08/04/17 06:40 ALT 66 U/L (21-72) 08/04/17 06:40 Alkaline Phosphatase 56 U/L (38-126) 08/04/17 06:40 Total Protein 7.8 G/DL (6.3-8.2) 08/04/17 06:40 Albumin 4.4 g/dL (3.5-5.0) 08/04/17 06:40 Globulin 3.4 gm/dL (2.2-3.9) 08/04/17 06:40 Albumin/Globulin Ratio 1.3 (1.0-2.1) 08/04/17 06:40 Blood Type O POSITIVE 08/04/17 06:40 Antibody Screen Negative 08/04/17 06:40 BBK History Checked Patient has bt 08/04/17 06:40
== END 2017-08-05 13:26 | disposition home or self-care (01) ==
LOC: H.OPSURG 06:06 → UNDOADMOB 14:03 → INTOOBSV 14:03 → H.MEDSURG1 14:03 → UNDODISOB 08-05 13:26
PROVIDERS: ADMIT Family Medicine; ATTEND Family Medicine
DX: M47.12 Other spondylosis with myelopathy, cervical region (principal); L29.9 Pruritus, unspecified; G89.29 Other chronic pain
CPT/HCPCS: 36415; 63001; 80053; 85025; 85610; 85730; 86850; 86900; 97161; G0378; G8978; G8979; G8980; J0330; J0690; J1100; J1170; J1650; J2001; J2270; J2274; J2310; J2704; J2710; J2765; J3010; J7030; J7120

== ENCOUNTER 2018-08-16 08:12 | Inpatient (IN) | payer BC, MEDICARE ==
[2018-08-16 08:15] VITALS: BMI 31.6
--- NOTE | 2018-08-16 08:47 | ED PDOC ---
HPI: Back Time Seen by Provider: 08/16/18 08:40 Chief Complaint (Nursing): Back Pain Chief Complaint (Provider): Back Pain History Per: Patient History/Exam Limitations: no limitations Onset/Duration Of Symptoms: Days Current Symptoms Are (Timing): Still Present Quality Of Discomfort: "Pain" Additional Complaint(s): 42 year old male with HTN presents to the ED complaining of upper back pain and neck pain. The pain is worsening since onset. Otherwise, patient denies fever, chest pain, abdominal pain, constipation, dysuria, frequency, incontinence, weakness, numbness or tingling. PMD: Hayder Ernandez Surgeon: Dr. Villanueva Past Medical History Reviewed: Historical Data, Nursing Documentation, Vital Signs Vital Signs: Last Vital Signs Temp 98.3 F 08/16/18 08:15 Pulse 77 08/16/18 08:15 Resp 16 08/16/18 08:15 BP 157/81 H 08/16/18 08:15 Pulse Ox 100 08/16/18 08:15 - Medical History PMH: HTN Denies: Arthritis, CHF, COPD, HIV, Hypothyroidism, Chronic Kidney Disease, Rheumatoid Arthritis - Surgical History Surgical History: Back Surgery - Family History Family History: States: Unknown Family Hx - Social History Current smoker - smoking cessation education provided: No Alcohol: None Drugs: Denies - Home Medications Home Medications: Ambulatory Orders Medication Instructions Recorded Cyclobenzaprine [Flexeril] 10 mg PO TID PRN #21 tab 08/05/17 Lisinopril [Zestril] 10 mg PO DAILY 08/16/18 fentaNYL 75 mcg/hr [Duragesic 1 patch TD Q72H 08/16/18 Patch 75 mcg/hr] - Allergies Allergies/Adverse Reactions: Allergies Allergy/AdvReac Type Severity Reaction Status Date / Time No Known Allergies Allergy Verified 08/03/17 15:35 Review of Systems ROS Statement: Except As Marked, All Systems Reviewed And Found Negative Constitutional: Negative for: Fever Cardiovascular: Negative for: Chest Pain Respiratory: Negative for: Shortness of Breath Gastrointestinal: Negative for: Abdominal Pain, Constipation Genitourinary Male: Negative for: Dysuria, Frequency, Incontinence Musculoskeletal: Positive for: Neck Pain, Back Pain (upper) Neurological: Negative for: Weakness, Numbness, Other (tingling ) Physical Exam - Reviewed Nursing Documentation Reviewed: Yes Vital Signs Reviewed: Yes - Physical Exam Appears: Positive for: Non-toxic, No Acute Distress Head Exam: Positive for: ATRAUMATIC, NORMAL INSPECTION, NORMOCEPHALIC Skin: Positive for: Normal Color, Warm, Dry. Negative for: Rash Eye Exam: Positive for: EOMI, Normal appearance, PERRL ENT: Positive for: Normal ENT Inspection Neck: Positive for: Normal, Painless ROM Cardiovascular/Chest: Positive for: Regular Rate, Rhythm. Negative for: Murmur Respiratory: Positive for: Normal Breath Sounds. Negative for: Respiratory Distress Gastrointestinal/Abdominal: Positive for: Normal Exam, Soft. Negative for: Tenderness Back: Positive for: Other (mild tenderness across upper back ) Extremity: Positive for: Normal ROM. Negative for: Tenderness, Pedal Edema, Deformity Neurological/Psych: Positive for: Awake, Alert, Normal Tone, Oriented (x3) - Laboratory Results Result Diagrams: 08/16/18 10:06 08/16/18 10:06 - ECG O2 Sat by Pulse Oximetry: 100 (RA) Pulse Ox Interpretation: Normal - Progress ED Course And Treament: 900: Spoke with [facility] for Dr. Ernandez who will admit. Medical Decision Making Medical Decision Making: Time: 0840 Impression: Back Pain Plan: Cervical spine w/o contrast CT EKG CMP Torponin Heart Healthy Diet CBC w/ differential PTT Prothrombin Time Normal Saline 100 mls/hr Toradol 15mg Nursing communication as ordered Reevaluation 11:18 PROCEDURE: CT Cervical Spine without contrast HISTORY: neck pain COMPARISON: None available. TECHNIQUE: Axial computed tomography images were obtained of the cervical spine without the use of intravenous contrast. Coronal and sagittal reformatted images were created and reviewed. Radiation dose: Total exam DLP = 354.47 mGy-cm. This CT exam was performed using one or more of the following dose reduction techniques: Automated exposure control, adjustment of the mA and/or kV according to patient size, and/or use of iterative reconstruction technique. FINDINGS: VERTEBRAE: No fracture. Normal alignment. No destructive bony lesion. Prior anterior cervical spine fusion noted with compression plate and transfixing screws fusing C4, C5 and C6. Intervertebral fusion hardware also identified at C4-5 and C5-6. No spondylolisthesis identified. C1-2 articulation is minimally degenerated with cysts craniocervical junction intact. Partial laminectomy identified bilaterally at C5 inferiorly decompresses C5-6 interspace. No destructive lesion appreciable. DISCS/SPINAL CANAL/NEURAL FORAMINA: No significant central canal or neural foraminal stenosis. Discs heights are grossly preserved. Central osteophytic ridging at the upper endplate of C6 inversion the ventral thecal sac. C5-6 decompressed by partial laminectomy at C5 once again nevertheless. PARASPINAL SOFT TISSUES: Unremarkable. OTHER FINDINGS: None. IMPRESSION: No fracture or spondylolisthesis appreciated status post anterior spinal fusion C4 through C6 inclusively including vertebral fusion at C4-5 and C5-6. Inferior partial laminectomy bilaterally noted at C5 as well. No suspicious soft tissue finding. No moderate or severe central canal stenosis appreciated as well as neural foramina bilaterally. 11:46 PROCEDURE: CT Thoracic Spine without contrast HISTORY: back pain COMPARISON: None available. TECHNIQUE: Axial computed tomography images were obtained of the thoracic spine without intravenous contrast. Coronal and sagittal reformatted images were created and reviewed. Radiation dose: Total exam DLP = 878.21 mGy-cm. This CT exam was performed using one or more of the following dose reduction techniques: Automated exposure control, adjustment of the mA and/or kV according to patient size, and/or use of iterative reconstruction technique. FINDINGS: VERTEBRAE: Normal curvature is appreciated without acute fracture or spondylolisthesis identified. Patient status post left lateral fusion at T10 and T11 by a solitary screw at each level transfixed by an interconnecting patti. Intervertebral fusion device also identified at the left side of the T10-11 disc interspace. Minimal multilevel thoracic spondylosis identified concentrated at mid and inferior levels. No destructive bony changes are identified. Artifacts from fusion hardware obscure T10 and T11 somewhat. DISCS/SPINAL CANAL/NEURAL FORAMINA: See above regarding intervertebral disc spaces. At T3-4, minimal left paracentral osteophyte borderline narrows the central canal with neural foramina widely patent. At T5-6, a moderate left paracentral osteophyte causes mild left cm canal stenosis with the right cm canal widely patent A similar lateralized disc osteophyte complex is seen at T7-8 toward the left causing borderline left cm canal stenosis but none on the right. At T7-8, right paracentral osteophyte causes borderline right cm canal stenosis with bilateral partial laminectomy at inferior T8 appreciated. Bilateral laminectomies are also seen at T9-10 with asymmetric left lateral osteophyte minimally causing mild left cm canal stenosis. At T10-11, mild central stenosis results from posterior ligamentous calcifications and disc osteophyte complex without significant neural foraminal stenosis appreciated. Otherwise, central canal and neural foramina appear widely patent throughout the remainder. PARASPINAL SOFT TISSUES: Unremarkable. OTHER FINDINGS: Unremarkable. IMPRESSION: No acute fracture or spondylolisthesis. T10-11 spinal fusion is seen as well as decompressing laminectomies at T8 and T9. Scribe Attestation: Documented by Mirlande Muse, acting as a scribe for Arvind Francois MD Provider Scribe Attestation: All medical record entries made by the Scribe were at my direction and personally dictated by me. I have reviewed the chart and agree that the record accurately reflects my personal performance of the history, physical exam, medical decision making, and the department course for this patient. I have also personally directed, reviewed, and agree with the discharge instructions and disposition. Disposition - Clinical Impression Clinical Impression: Back pain - Patient ED Disposition Is Patient to be Admitted: Yes Counseled Patient/Family Regarding: Studies Performed, Diagnosis - Disposition Disposition Time: 08:15 Condition: STABLE - Pt Status Changed To: Hospital Disposition Of: Inpatient - Admit Certification Admit to Inpatient:: After my assessment, the patient will require hospita lization for at least two midnights. This is because of the severity of symptoms shown, intensity of services needed, and/or the medical risk in this patient being treated as an outpatient. - POA Present On Arrival: None
[2018-08-16] MEDS ORDERED: Sodium Chloride 0.9% 500 ML IV STA (09:15)
[2018-08-16 10:28] LABS: BASO # 0.1 K/uL (0.0-0.2); BASO % 0.8 % (0.0-2.0); EOS # 0.2 K/uL (0.0-0.7); EOS % 3.5 % (0.0-4.0); HEMOGLOBIN 12.3 g/dL (12.0-18.0); LYMPH # 2.8 K/uL (1.0-4.3); LYMPH % 39.7 % (20.0-40.0); MEAN CELL VOLUME 61.1 fl (80.0-94.0); MEAN CORPUSCULAR HEMOGLOBIN 18.8 pg (27.0-31.0); MEAN CORPUSCULAR HGB CONC 30.8 g/dL (33.0-37.0); MEAN PLATELET VOLUME 9.2 fl (7.2-11.7); MONO # 0.5 K/uL (0.0-0.8); MONO % 7.7 % (0.0-10.0); NEUT # 3.3 K/uL (1.8-7.0); NEUT % 48.3 % (50.0-75.0); NRBC % 0.1 % (0.0-0.0); RBC 6.53 Mil/uL (4.40-5.90); RED CELL DISTRIBUTION WIDTH 17.5 % (11.5-14.5); WHITE BLOOD COUNT 6.9 K/uL (4.8-10.8)
[2018-08-16 10:37] LABS: INR 1.1; PROTHROMBIN TIME 12.7 Seconds (9.8-13.1)
[2018-08-16 10:40] LABS: PARTIAL THROMBOPLASTIN TIME 35.3 Seconds (25.6-37.1)
[2018-08-16 10:42] LABS: ALB/GLOB RATIO 1.4 (1.0-2.1); ALBUMIN 4.4 g/dL (3.5-5.0); ALT/SGPT 154 U/L (21-72); AST/SGOT 83 U/L (17-59); BLOOD UREA NITROGEN 8 mg/dl (9-20); CALCIUM 9.1 mg/dL (8.4-10.2); GFR NON-AFRICAN AMERICAN > 60
--- NOTE | 2018-08-16 11:22 | CT ---
Date of service: 08/16/2018 PROCEDURE: CT Cervical Spine without contrast HISTORY: neck pain COMPARISON: None available. TECHNIQUE: Axial computed tomography images were obtained of the cervical spine without the use of intravenous contrast. Coronal and sagittal reformatted images were created and reviewed. Radiation dose: Total exam DLP = 354.47 mGy-cm. This CT exam was performed using one or more of the following dose reduction techniques: Automated exposure control, adjustment of the mA and/or kV according to patient size, and/or use of iterative reconstruction technique. FINDINGS: VERTEBRAE: No fracture. Normal alignment. No destructive bony lesion. Prior anterior cervical spine fusion noted with compression plate and transfixing screws fusing C4, C5 and C6. Intervertebral fusion hardware also identified at C4-5 and C5-6. No spondylolisthesis identified. C1-2 articulation is minimally degenerated with cysts craniocervical junction intact. Partial laminectomy identified bilaterally at C5 inferiorly decompresses C5-6 interspace. No destructive lesion appreciable. DISCS/SPINAL CANAL/NEURAL FORAMINA: No significant central canal or neural foraminal stenosis. Discs heights are grossly preserved. Central osteophytic ridging at the upper endplate of C6 inversion the ventral thecal sac. C5-6 decompressed by partial laminectomy at C5 once again nevertheless. PARASPINAL SOFT TISSUES: Unremarkable. OTHER FINDINGS: None. IMPRESSION: No fracture or spondylolisthesis appreciated status post anterior spinal fusion C4 through C6 inclusively including vertebral fusion at C4-5 and C5-6. Inferior partial laminectomy bilaterally noted at C5 as well. No suspicious soft tissue finding. No moderate or severe central canal stenosis appreciated as well as neural foramina bilaterally.
--- NOTE | 2018-08-16 11:50 | CT ---
Date of service: 08/16/2018 PROCEDURE: CT Thoracic Spine without contrast HISTORY: back pain COMPARISON: None available. TECHNIQUE: Axial computed tomography images were obtained of the thoracic spine without intravenous contrast. Coronal and sagittal reformatted images were created and reviewed. Radiation dose: Total exam DLP = 878.21 mGy-cm. This CT exam was performed using one or more of the following dose reduction techniques: Automated exposure control, adjustment of the mA and/or kV according to patient size, and/or use of iterative reconstruction technique. FINDINGS: VERTEBRAE: Normal curvature is appreciated without acute fracture or spondylolisthesis identified. Patient status post left lateral fusion at T10 and T11 by a solitary screw at each level transfixed by an interconnecting patti. Intervertebral fusion device also identified at the left side of the T10-11 disc interspace. Minimal multilevel thoracic spondylosis identified concentrated at mid and inferior levels. No destructive bony changes are identified. Artifacts from fusion hardware obscure T10 and T11 somewhat. DISCS/SPINAL CANAL/NEURAL FORAMINA: See above regarding intervertebral disc spaces. At T3-4, minimal left paracentral osteophyte borderline narrows the central canal with neural foramina widely patent. At T5-6, a moderate left paracentral osteophyte causes mild left cm canal stenosis with the right cm canal widely patent A similar lateralized disc osteophyte complex is seen at T7-8 toward the left causing borderline left cm canal stenosis but none on the right. At T7-8, right paracentral osteophyte causes borderline right cm canal stenosis with bilateral partial laminectomy at inferior T8 appreciated. Bilateral laminectomies are also seen at T9-10 with asymmetric left lateral osteophyte minimally causing mild left cm canal stenosis. At T10-11, mild central stenosis results from posterior ligamentous calcifications and disc osteophyte complex without significant neural foraminal stenosis appreciated. Otherwise, central canal and neural foramina appear widely patent throughout the remainder. PARASPINAL SOFT TISSUES: Unremarkable. OTHER FINDINGS: Unremarkable. IMPRESSION: No acute fracture or spondylolisthesis. T10-11 spinal fusion is seen as well as decompressing laminectomies at T8 and T9.
--- NOTE | 2018-08-16 12:16 | CP.PCM.CON ---
History of Present Illness - History of Present Illness History of Present Illness: Neurosurgical consult: Dr. Villanueva Patient is a 42 y/o male c/o of neck and upper back pain. The patient has had the pain for many years but the pain has progressively worsened over the past few months. He notes that the pain occurs daily and hinders him from his usual activities. He has tried and failed conservative means with PT and oral medications. He has history of prior posterior cervical and thoracic laminectomy and ACDF in the past which has given him only temporary pain relief. He notes that the pain is sharp and intermittent but daily. The pain radiates to both UE, greater to the LUE. He admits to occasional numbness and tingling to both UE and anterior chest/abdomen. He denies any CP/SOB/N/V/D/fever/dysuria/melena. PMH: HTN PSH: lumbar laminectomy, thoracic laminectomy, cervical laminectomy, cervical ACDF, L knee arthroscopy meds: lisinopril, fentanyl patch allergy: NKDA, adhesive tape SH: denies tobacco/ETOH/drug use Review of Systems - Review of Systems All systems: reviewed and no additional remarkable complaints except Review of Systems: as per HPI Past Patient History - Infectious Disease Hx of Infectious Diseases: None - Tetanus Immunizations Tetanus Immunization: Unknown - Past Medical History & Family History Past Medical History?: Yes Past Family History: Reviewed and not pertinent - Past Social History Alcohol: None Drugs: Denies - CARDIAC Hx Congestive Heart Failure: No Hx Hypertension: Yes - PULMONARY Hx Chronic Obstructive Pulmonary Disease (COPD): No - NEUROLOGICAL Hx Neurological Disorder: Yes HX Cerebrovascular Accident: No Other/Comment: TINGLING HANDS AND FEET - HEENT Hx HEENT Problems: No - RENAL Hx Chronic Kidney Disease: No - ENDOCRINE/METABOLIC Hx Hypothyroidism: No - HEMATOLOGICAL/ONCOLOGICAL Hx Human Immunodeficiency Virus (HIV): No - INTEGUMENTARY Hx Dermatological Problems: No - MUSCULOSKELETAL/RHEUMATOLOGICAL Hx Arthritis: No Hx Rheumatoid Arthritis: No - GASTROINTESTINAL Hx Gastrointestinal Disorders: No - GENITOURINARY/GYNECOLOGICAL Hx Genitourinary Disorders: No - PSYCHIATRIC Hx Psychophysiologic Disorder: No Hx Substance Use: No - SURGICAL HISTORY Hx Surgeries: Yes Hx Orthopedic Surgery: Yes Other/Comment: THORACIC LAMINECTOMY X3.THRORACIC DISSECTOMY 2015 .CERVICAL SX .MEDIAN NERVE BRANCH BLOCK - ANESTHESIA Hx Anesthesia: Yes Hx Anesthesia Reactions: No Hx Malignant Hyperthermia: No Meds Allergies/Adverse Reactions: Allergies Allergy/AdvReac Type Severity Reaction Status Date / Time No Known Allergies Allergy Verified 08/03/17 15:35 - Medications Medications: Current Medications Sodium Chloride (Sodium Chloride 0.9%) 500 mls @ 100 mls/hr IV .Q5H STA Stop: 08/16/18 14:14 Last Admin: 08/16/18 09:37 Dose: 100 mls/hr Physical Exam - Constitutional Appears: Well, No Acute Distress - Head Exam Head Exam: ATRAUMATIC, NORMOCEPHALIC - Eye Exam Eye Exam: EOMI, Normal appearance - ENT Exam ENT Exam: Mucous Membranes Moist - Neck Exam Additional comments: diffuse midline tenderness no paraspinal tenderness old posterior and anterior scars well healed sensation and motor intact MN/UN/RN neg clonus - Respiratory Exam Respiratory Exam: NORMAL BREATHING PATTERN - Back Exam Additional comments: diffuse mid back and lumbar midline tenderness old thoracic and lumbar scars well healed no erythema, no ecchymosis sensation intact SP/DP/TN motor intact EHL/FHL/TA/G neg SLR b/l - Neurological Exam Neurological exam: Alert, CN II-XII Intact, Oriented x3 - Psychiatric Exam Psychiatric exam: Normal Affect, Normal Mood - Skin Skin Exam: Normal Color, Warm Results - Vital Signs Recent Vital Signs: Last Vital Signs Temp 98.3 F 08/16/18 08:15 Pulse 77 08/16/18 08:15 Resp 16 08/16/18 08:15 BP 157/81 H 08/16/18 08:15 Pulse Ox 100 08/16/18 11:44 - Labs Result Diagrams: 08/16/18 10:06 08/16/18 10:06 Labs: Laboratory Results - last 24 hr 08/16/18 08/16/18 08/16/18 10:06 10:06 10:06 WBC 6.9 RBC 6.53 H Hgb 12.3 Hct 39.9 MCV 61.1 L D MCH 18.8 L MCHC 30.8 L RDW 17.5 H Plt Count 148 MPV 9.2 Neut % (Auto) 48.3 L Lymph % (Auto) 39.7 [place] % (Auto) 7.7 Eos % (Auto) 3.5 Baso % (Auto) 0.8 Neut # (Auto) 3.3 Lymph # (Auto) 2.8 [place] # (Auto) 0.5 Eos # (Auto) 0.2 Baso # (Auto) 0.1 PT 12.7 INR 1.1 APTT 35.3 Sodium 141 Potassium 4.0 Chloride 104 Carbon Dioxide 28 Anion Gap 13 BUN 8 L Creatinine 0.6 L Est GFR ( Amer) > 60 Est GFR (Non-Af Amer) > 60 Random Glucose 94 Calcium 9.1 Total Bilirubin 0.7 AST 83 H D ALT 154 H D Alkaline Phosphatase 53 Troponin I < 0.0120 Total Protein 7.5 Albumin 4.4 Globulin 3.1 Albumin/Globulin Ratio 1.4 - Impressions Impression: Accession No. : [id number] Patient Name / ID : NATHAN Miguel / [id number] Exam Date : 08/16/2018 10:47:52 ( Approved ) Study Comment : Sex / Age : M / 42Y Creator : Kyler Coronado MD Dictator : Kyler Coronado MD Four Slide Machine Operator : Regional Operations Director : Kyler Coronado MD Approver2 : Report Date : 08/16/2018 11:18:43 My Comment : Date of service: 08/16/2018 PROCEDURE: CT Cervical Spine without contrast HISTORY: neck pain COMPARISON: None available. TECHNIQUE: Axial computed tomography images were obtained of the cervical spine without the use of intravenous contrast. Coronal and sagittal reformatted images were created and reviewed. Radiation dose: Total exam DLP = 354.47 mGy-cm. This CT exam was performed using one or more of the following dose reduction techniques: Automated exposure control, adjustment of the mA and/or kV according to patient size, and/or use of iterative reconstruction technique. FINDINGS: VERTEBRAE: No fracture. Normal alignment. No destructive bony lesion. Prior anterior cervical spine fusion noted with compression plate and transfixing screws fusing C4, C5 and C6. Intervertebral fusion hardware also identified at C4-5 and C5-6. No spondylolisthesis identified. C1-2 articulation is minimally degenerated with cysts craniocervical junction intact. Partial laminectomy identified bilaterally at C5 inferiorly decompresses C5-6 interspace. No destructive lesion appreciable. DISCS/SPINAL CANAL/NEURAL FORAMINA: No significant central canal or neural foraminal stenosis. Discs heights are grossly preserved. Central osteophytic ridging at the upper endplate of C6 inversion the ventral thecal sac. C5-6 decompressed by partial laminectomy at C5 once again nevertheless. PARASPINAL SOFT TISSUES: Unremarkable. OTHER FINDINGS: None. IMPRESSION: No fracture or spondylolisthesis appreciated status post anterior spinal fusion C4 through C6 inclusively including vertebral fusion at C4-5 and C5-6. Inferior partial laminectomy bilaterally noted at C5 as well. No suspicious soft tissue finding. No moderate or severe central canal stenosis appreciated as well as neural foramina bilaterally. Accession No. : [id number] Patient Name / ID : NATHAN Miguel / [id number] Exam Date : 08/16/2018 10:50:09 ( Approved ) Study Comment : Sex / Age : M / 42Y Creator : Kyler Coronado MD Dictator : Kyler Coronado MD Four Slide Machine Operator : Regional Operations Director : Kyler Coronado MD Approver2 : Report Date : 08/16/2018 11:46:14 My Comment : Date of service: 08/16/2018 PROCEDURE: CT Thoracic Spine without contrast HISTORY: back pain COMPARISON: None available. TECHNIQUE: Axial computed tomography images were obtained of the thoracic spine without intravenous contrast. Coronal and sagittal reformatted images were created and reviewed. Radiation dose: Total exam DLP = 878.21 mGy-cm. This CT exam was performed using one or more of the following dose reduction techniques: Automated exposure control, adjustment of the mA and/or kV according to patient size, and/or use of iterative reconstruction technique. FINDINGS: VERTEBRAE: Normal curvature is appreciated without acute fracture or spondylolisthesis identified. Patient status post left lateral fusion at T10 and T11 by a solitary screw at each level transfixed by an interconnecting patti. Intervertebral fusion device also identified at the left side of the T10-11 disc interspace. Minimal multilevel thoracic spondylosis identified concentrated at mid and inferior levels. No destructive bony changes are identified. Artifacts from fusion hardware obscure T10 and T11 somewhat. DISCS/SPINAL CANAL/NEURAL FORAMINA: See above regarding intervertebral disc spaces. At T3-4, minimal left paracentral osteophyte borderline narrows the central canal with neural foramina widely patent. At T5-6, a moderate left paracentral osteophyte causes mild left cm canal stenosis with the right cm canal widely patent A similar lateralized disc osteophyte complex is seen at T7-8 toward the left causing borderline left cm canal stenosis but none on the right. At T7-8, right paracentral osteophyte causes borderline right cm canal stenosis with bilateral partial laminectomy at inferior T8 appreciated. Bilateral laminectomies are also seen at T9-10 with asymmetric left lateral osteophyte minimally causing mild left cm canal stenosis. At T10-11, mild central stenosis results from posterior ligamentous calcificati ons and disc osteophyte complex without significant neural foraminal stenosis appreciated. Otherwise, central canal and neural foramina appear widely patent throughout the remainder. PARASPINAL SOFT TISSUES: Unremarkable. OTHER FINDINGS: Unremarkable. IMPRESSION: No acute fracture or spondylolisthesis. T10-11 spinal fusion is seen as well as decompressing laminectomies at T8 and T9. Accession No. : [id number] Patient Name / ID : NATHAN Miguel / [id number] Exam Date : 08/16/2018 12:01:35 ( Approved ) Study Comment : Sex / Age : M / 42Y Creator : Kyler Coronado MD Dictator : Kyler Coronado MD Four Slide Machine Operator : Regional Operations Director : Kyler Coronado MD Approver2 : Report Date : 08/16/2018 14:44:50 My Comment : Date of service: 08/16/2018 PROCEDURE: MR CERVICAL SPINE WITHOUT CONTRAST HISTORY: cervical neck pain COMPARISON: Cervical spine CT without contrast 08/16/2018. TECHNIQUE: Multiecho multiplanar sequences were performed through the cervical spine without the use of intravenous contrast. FINDINGS: Normal lordotic curvature. Interval prior multilevel anterior fusion from C4-C6 with partial laminectomy the inferior margins of the bilateral laminae a at C5 reiterated. No interval spondylolisthesis. No destructive bony lesion identified. Intervertebral fusion hardware at C4-5 and C5-6 are less well defined by the current technique than by CT. Craniocervical junction intact as well as the C1-2 articulation. Vertebral body heights preserved. No marrow signal abnormality. Normal cervical cord. No paraspinal abnormality. C2-C3: No disc herniation, spinal canal stenosis or neural foraminal narrowing. C3-C4: No disc herniation, spinal canal stenosis or neural foraminal narrowing. C4-C5: No disc herniation, spinal canal stenosis or neural foraminal narrowing. Lower endplate central osteophyte encroaches but does not appear to impinge ventral nerve roots or cause significant stenosis. C5-C6: No disc herniation, spinal canal stenosis or neural foraminal narrowing. Lower endplate central osteophyte encroaches but does not appear to impinge ventral nerve roots or cause significant stenosis. C6-C7: No disc herniation, spinal canal stenosis or neural foraminal narrowing. Additional central osteophyte encroaches ventral nerve roots without causing significant stenosis. C7-T1: No disc herniation, spinal canal stenosis or neural foraminal narrowing. OTHER FINDINGS: None. IMPRESSION: Status post anterior cervical spinal fusion C4-C6 inclusively with partial laminectomy at C5 bilaterally decompressing C4-5 disc interspace level. Multiple endplate osteophytes are identified posteriorly at C4-5, C5-6 and C6-7 without resulting in stenosis overall. The encroach ventral nerve roots. Defect of the central canal appears less than that seen in prior CT 08/16/2018. No obvious disc herniation appreciable throughout the exam. Accession No. : [id number] Patient Name / ID : NATHAN Miguel / [id number] Exam Date : 08/16/2018 15:28:04 ( Approved ) Study Comment : Sex / Age : M / 42Y Creator : Kyler Coronado MD Dictator : Kyler Coronado MD Four Slide Machine Operator : Regional Operations Director : Kyler Coronado MD Approver2 : Report Date : 08/16/2018 17:05:22 My Comment : Date of service: 08/16/2018 PROCEDURE: MR THORACIC SPINE WITHOUT CONTRAST HISTORY: mid back pain COMPARISON: None available. TECHNIQUE: Multiecho multiplanar sequences were performed through the thoracic spine without the use of intravenous contrast. FINDINGS: ALIGNMENT: Normal thoracic spinal alignment. Normal thoracic kyphosis. VERTEBRA: Vertebral body height are preserved. Left-sided effusion T9 and T10 as well as intervertebral disc space. Status post bilateral laminectomies at T8 and T9, partial at T8. MARROW: Signal dephasing is seen in the marrow of the T9 and T10 vertebral bodies with better detail in prior CT thoracic spine also performed 08/16/2018. The marrow is dark across all sequences and may reflect hematopoetic disorder. Clinically correlate further. PARASPINAL SOFT TISSUES: Unremarkable. CORD: unremarkable thoracic cord. No volume loss, signal abnormality or syrinx. DISCS: Central canal is widely patent throughout the thoracic spine although asymmetric left-sided osteophytes are identified at T4-5, T6-7 and T8-9 abutting the ventral surface of the cord and likely impinging left-sided ventral nerve roots with osteophyte at T4-5 slightly indenting the ventral left hemicord in fact. A similar asymmetric disc osteophyte indents the right cm cord at T7-8, potentially impinging the ventral right nerve roots. No moderate or severe stenosis appreciated throughout the thoracic spine nevertheless the neural foramina widely patent throughout. OTHER FINDINGS: None. IMPRESSION: 1. No isolated disc herniation, moderate or severe central stenosis. Neural foramina remain widely patent throughout. 2. Variable lateralized disc osteophyte complex is appreciated at T4-5, T6-7 and T8-9 at the left and at the right at T7-8. T4-5 and T7-8 osteophytes are large enough to indent the cord and likely impinge ventral nerve roots at the left and right respectively. 3. Left lateral T9-10 spinal fusion with dephasing signal from hardware identified within the vertebral bodies. Intervertebral fusion is seen the left side of the T9-10 disc interspace as well. Prior laminectomies at T8 and T9 are identified bilaterally. Assessment & Plan (1) Thoracic spondylosis Assessment and Plan: Patient complains of thoracic pain and cervical pain, right greater than left. MRI and CT reviewed by Dr. Villanueva. At this time, symptoms are referred to thoracic and cervical spine. After discussion with patient and Dr. Villanueva, it was decided to perform thoracic spine decompression at T7-8. We will proceed with thoracic laminectomy Risks/benefits explained to patient. Patient understands and agrees to proceed with surgery. Admit to Dr. Ernandez NPO pMN d/w Dr. Villanueva who agrees with above Status: Acute - Date & Time Date: 08/17/18 Time: 07:00
--- NOTE | 2018-08-16 14:48 | MRI ---
Date of service: 08/16/2018 PROCEDURE: MR CERVICAL SPINE WITHOUT CONTRAST HISTORY: cervical neck pain COMPARISON: Cervical spine CT without contrast 08/16/2018. TECHNIQUE: Multiecho multiplanar sequences were performed through the cervical spine without the use of intravenous contrast. FINDINGS: Normal lordotic curvature. Interval prior multilevel anterior fusion from C4-C6 with partial laminectomy the inferior margins of the bilateral laminae a at C5 reiterated. No interval spondylolisthesis. No destructive bony lesion identified. Intervertebral fusion hardware at C4-5 and C5-6 are less well defined by the current technique than by CT. Craniocervical junction intact as well as the C1-2 articulation. Vertebral body heights preserved. No marrow signal abnormality. Normal cervical cord. No paraspinal abnormality. C2-C3: No disc herniation, spinal canal stenosis or neural foraminal narrowing. C3-C4: No disc herniation, spinal canal stenosis or neural foraminal narrowing. C4-C5: No disc herniation, spinal canal stenosis or neural foraminal narrowing. Lower endplate central osteophyte encroaches but does not appear to impinge ventral nerve roots or cause significant stenosis. C5-C6: No disc herniation, spinal canal stenosis or neural foraminal narrowing. Lower endplate central osteophyte encroaches but does not appear to impinge ventral nerve roots or cause significant stenosis. C6-C7: No disc herniation, spinal canal stenosis or neural foraminal narrowing. Additional central osteophyte encroaches ventral nerve roots without causing significant stenosis. C7-T1: No disc herniation, spinal canal stenosis or neural foraminal narrowing. OTHER FINDINGS: None. IMPRESSION: Status post anterior cervical spinal fusion C4-C6 inclusively with partial laminectomy at C5 bilaterally decompressing C4-5 disc interspace level. Multiple endplate osteophytes are identified posteriorly at C4-5, C5-6 and C6-7 without resulting in stenosis overall. The encroach ventral nerve roots. Defect of the central canal appears less than that seen in prior CT 08/16/2018. No obvious disc herniation appreciable throughout the exam.
--- NOTE | 2018-08-16 17:08 | MRI ---
Date of service: 08/16/2018 PROCEDURE: MR THORACIC SPINE WITHOUT CONTRAST HISTORY: mid back pain COMPARISON: None available. TECHNIQUE: Multiecho multiplanar sequences were performed through the thoracic spine without the use of intravenous contrast. FINDINGS: ALIGNMENT: Normal thoracic spinal alignment. Normal thoracic kyphosis. VERTEBRA: Vertebral body height are preserved. Left-sided effusion T9 and T10 as well as intervertebral disc space. Status post bilateral laminectomies at T8 and T9, partial at T8. MARROW: Signal dephasing is seen in the marrow of the T9 and T10 vertebral bodies with better detail in prior CT thoracic spine also performed 08/16/2018. The marrow is dark across all sequences and may reflect hematopoetic disorder. Clinically correlate further. PARASPINAL SOFT TISSUES: Unremarkable. CORD: unremarkable thoracic cord. No volume loss, signal abnormality or syrinx. DISCS: Central canal is widely patent throughout the thoracic spine although asymmetric left-sided osteophytes are identified at T4-5, T6-7 and T8-9 abutting the ventral surface of the cord and likely impinging left-sided ventral nerve roots with osteophyte at T4-5 slightly indenting the ventral left hemicord in fact. A similar asymmetric disc osteophyte indents the right cm cord at T7-8, potentially impinging the ventral right nerve roots. No moderate or severe stenosis appreciated throughout the thoracic spine nevertheless the neural foramina widely patent throughout. OTHER FINDINGS: None. IMPRESSION: 1. No isolated disc herniation, moderate or severe central stenosis. Neural foramina remain widely patent throughout. 2. Variable lateralized disc osteophyte complex is appreciated at T4-5, T6-7 and T8-9 at the left and at the right at T7-8. T4-5 and T7-8 osteophytes are large enough to indent the cord and likely impinge ventral nerve roots at the left and right respectively. 3. Left lateral T9-10 spinal fusion with dephasing signal from hardware identified within the vertebral bodies. Intervertebral fusion is seen the left side of the T9-10 disc interspace as well. Prior laminectomies at T8 and T9 are identified bilaterally.
--- NOTE | 2018-08-16 21:04 | CARD ---
APPROVED REPORT Date of service: 08/16/2018 EKG Measurement Heart [id number] <Conclusion> Normal sinus rhythm with sinus arrhythmia Normal ECG
[2018-08-17] MEDS: Lactated Ringer's 1,000 ML IV SCH ×3 (00:01→10:59)
--- NOTE | 2018-08-17 01:31 | CP.PCM.HP ---
History of Present Illness - History of Present Illness History of Present Illness: CC: Upper back and neck pain, peripheral neuropathy. HPI: 42 y/o male with a PMH of HTN and multiple back surgeries presents to the ED with upper back and neck pain, as well as neuropathy to the upper extremities. As per the pt, he has seen Dr. Villanuvea in the office and was advised to go to the ED due to worsening of symptoms. PMH: HTN. PSH: Lumbar laminectomy, thoracic laminectomy, cervical laminectomy, cervical ACDF, Left knee arthroscopy. Allergies: NKDA. Subjective Review of Systems: Reviewed and no additional remarkable complaints except upper back pain, neck pain, upper extremity neuropathy. Objective Appears: Anxious, Non-toxic, No Acute Distress. Head Exam: NORMAL INSPECTION, normocephalic. Eye Exam: Normal eye inspection, EOMI, PERRLA. Respiratory Exam: NORMAL BREATHING PATTERN, breath sounds clear bilaterally. Cardiovascular Exam: +S1, +S2. RRR. GI & Abdominal Exam: Non-distended, soft, non-tender. Neurological Exam: Alert, Awake, Oriented x3. Psychiatric exam: Normal mood. Calm and cooperative. Musculoskeletal exam: Painful ROM and tenderness to the upper back. Skin exam: Normal color, warm, dry. Assessment/Impression/Plan: 1.) Back Pain/Cervical Spondylosis -For Cervical Foraminotomy tomorrow with Dr. Villanueva, neurosurgery. -NPO past midnight. -Coags and EKG reviewed; WNL. -Pain control: Toradol and Morphine. -LR @ 100 ml/hr. -Continue current treatment. -Medically cleared for surgery at this time. Present on Admission - Present on Admission Any Indicators Present on Admission: No Past Patient History - Infectious Disease Hx of Infectious Diseases: None - Tetanus Immunizations Tetanus Immunization: Unknown - Past Medical History & Family History Past Medical History?: Yes - Past Social History Smoking Status: Never Smoked - CARDIAC Hx Cardiac Disorders: Yes Hx Congestive Heart Failure: No Hx Hypertension: Yes - PULMONARY Hx Respiratory Disorders: No Hx Chronic Obstructive Pulmonary Disease (COPD): No - NEUROLOGICAL Hx Neurological Disorder: Yes HX Cerebrovascular Accident: No Other/Comment: TINGLING HANDS AND FEET - HEENT Hx HEENT Problems: No - RENAL Hx Chronic Kidney Disease: No - ENDOCRINE/METABOLIC Hx Endocrine Disorders: No Hx Hypothyroidism: No - HEMATOLOGICAL/ONCOLOGICAL Hx Blood Disorders: No Hx Human Immunodeficiency Virus (HIV): No - INTEGUMENTARY Hx Dermatological Problems: No - MUSCULOSKELETAL/RHEUMATOLOGICAL Hx Musculoskeletal Disorders: Yes Hx Back Pain: Yes Hx Falls: No - GASTROINTESTINAL Hx Gastrointestinal Disorders: No - GENITOURINARY/GYNECOLOGICAL Hx Genitourinary Disorders: No - PSYCHIATRIC Hx Psychophysiologic Disorder: No Hx Substance Use: No - SURGICAL HISTORY Hx Surgeries: Yes Hx Orthopedic Surgery: Yes Other/Comment: THORACIC LAMINECTOMY X3.THRORACIC DISSECTOMY 2015 .CERVICAL SX .MEDIAN NERVE BRANCH BLOCK - ANESTHESIA Hx Anesthesia: Yes Hx Anesthesia Reactions: No Hx Malignant Hyperthermia: No Meds Allergies/Adverse Reactions: Allergies Allergy/AdvReac Type Severity Reaction Status Date / Time No Known Allergies Allergy Verified 08/03/17 15:35 Results - Vital Signs Recent Vital Signs: Last Vital Signs Temp 97.9 F 08/17/18 00:01 Pulse 76 08/17/18 00:01 Resp 20 08/17/18 00:01 BP 111/70 08/17/18 00:01 Pulse Ox 97 08/17/18 00:01 - Labs Result Diagrams: 08/16/18 10:06 08/16/18 10:06 Labs: Laboratory Results - last 24 hr 08/16/18 08/16/18 08/16/18 10:06 10:06 10:06 WBC 6.9 RBC 6.53 H Hgb 12.3 Hct 39.9 MCV 61.1 L D MCH 18.8 L MCHC 30.8 L RDW 17.5 H Plt Count 148 MPV 9.2 Neut % (Auto) 48.3 L Lymph % (Auto) 39.7 Rap[place] % (Auto) 7.7 Eos % (Auto) 3.5 Baso % (Auto) 0.8 Neut # (Auto) 3.3 Lymph # (Auto) 2.8 [place] # (Auto) 0.5 Eos # (Auto) 0.2 Baso # (Auto) 0.1 PT 12.7 INR 1.1 APTT 35.3 Sodium 141 Potassium 4.0 Chloride 104 Carbon Dioxide 28 Anion Gap 13 BUN 8 L Creatinine 0.6 L Est GFR ( Amer) > 60 Est GFR (Non-Af Amer) > 60 Random Glucose 94 Calcium 9.1 Total Bilirubin 0.7 AST 83 H D ALT 154 H D Alkaline Phosphatase 53 Troponin I < 0.0120 Total Protein 7.5 Albumin 4.4 Globulin 3.1 Albumin/Globulin Ratio 1.4 Blood Type Antibody Screen BBK History Checked 08/16/18 17:38 WBC RBC Hgb Hct MCV MCH MCHC RDW Plt Count MPV Neut % (Auto) Lymph % (Auto) [place] % (Auto) Eos % (Auto) Baso % (Auto) Neut # (Auto) Lymph # (Auto) [place] # (Auto) Eos # (Auto) Baso # (Auto) PT INR APTT Sodium Potassium Chloride Carbon Dioxide Anion Gap BUN Creatinine Est GFR ( Amer) Est GFR (Non-Af Amer) Random Glucose Calcium Total Bilirubin AST ALT Alkaline Phosphatase Troponin I Total Protein Albumin Globulin Albumin/Globulin Ratio Blood Type O POSITIVE Antibody Screen Negative BBK History Checked Patient has bt Assessment & Plan (1) Back pain Status: Acute (2) Cervical spondylosis Status: Acute
[2018-08-17] MEDS ORDERED: Succinylcholine Chloride 20 mg/ml Syr (5 ml) IV ONE (07:35)
[2018-08-17] MEDS ORDERED: Propofol 10 mg/ml Inj (20 ML) ONE ×2 (07:35→08:52)
[2018-08-17] MEDS ORDERED: Rocuronium 10 mg/ml (5 ml) ONE (07:35)
[2018-08-17] MEDS ORDERED: Sevoflurane - Inhalation Anesthetic Liq (250 ml) ONE (07:40)
--- NOTE | 2018-08-17 07:59 | RAD ---
Date of service: 08/16/2018 PROCEDURE: CHEST RADIOGRAPH, 1 VIEW HISTORY: pre-op medical clearance COMPARISON: 04/17/2015 FINDINGS: LUNGS: Clear. PLEURA: No pneumothorax or pleural fluid seen. CARDIOVASCULAR: No aortic atherosclerotic calcification present. Apparent cardiac related surgery tiny metallic densities-unchanged. OSSEOUS STRUCTURES: Cervical fusion hardware visualized on this exam not appreciated on prior exam. Prior left-sided inferior thoracic hardware and apparent intervertebral disc spacer on frontal view grossly similar appearing VISUALIZED UPPER ABDOMEN: Normal. OTHER FINDINGS: None. IMPRESSION: No active disease. No interval cardiopulmonary pathology noted. Interval cervical hardware fusion noted
[2018-08-17] MEDS ORDERED: Absorbable Gelatin Sponge Size 12-7 ONE (08:02)
[2018-08-17] MEDS ORDERED: Thrombin Topical 5,000 Int Units Spray Kit ONE ×2 (08:03→08:09)
[2018-08-17] MEDS ORDERED: Lactated Ringer's 1,000 ML IV ONE (08:40)
[2018-08-17] MEDS ORDERED: Midazolam 2 MG/2 ML VIAL ONE (08:47)
[2018-08-17] MEDS ORDERED: Dexamethasone 4 mg/1 ml ONE (09:17)
[2018-08-17] MEDS: Bacitracin Ointment 30 GM TUBE ONE ×2 (09:38→10:08)
[2018-08-17] MEDS: Bupivacaine 0.5% Inj(30mL) ONE ×2 (09:39→10:07)
[2018-08-17] MEDS ORDERED: Lactated Ringer's 500 ML IV ONE (09:52)
[2018-08-17] MEDS ORDERED: Neostigmine 1:1000 (1 mg/ml) Inj ONE (10:13)
[2018-08-17] MEDS ORDERED: Lactated Ringer's 1,000 ML IV SCH (10:45)
--- NOTE | 2018-08-17 10:53 | PCM.SURG1 ---
Surgeon's Initial Post Op Note - Surgeon's Notes Surgeon: Ady Villanueva MD Storage Brine Worker: Ge Phillips PA-C Type of Anesthesia: General Endo Anesthesia Administered By: Inge Justice MD Pre-Operative Diagnosis: Thoracic spondylosis Operative Findings: see complete operative report Post-Operative Diagnosis: T7-T8 thoracic spondylosis Operation Performed: T7-T8 laminectomy, microdiscectomy and posterolateral fusion Specimen/Specimens Removed: none Estimated Blood Loss: EBL {In ML}: 50 Blood Products Given: N/A Drains Used: Michael Parker (Left back) Post-Op Condition: Good Date of Surgery/Procedure: 08/17/18 Time of Surgery/Procedure: 09:20
[2018-08-17] MEDS: HYDROmorphone 0.5 mg/0.5 ml ISec IVP PRN ×2 (10:56→11:05)
[2018-08-17] MEDS ORDERED: Oxycodone/Acetaminophen 5/325 mg Tab PO PRN ×2 (14:54)
[2018-08-17] MEDS ORDERED: ceFAZolin 2 GM in Sodium Chloride 0.9% 100 ML IVPB SCH (17:00)
[2018-08-17 17:53] VITALS: BP 124/72; PULSE 72; RESP 20; TEMP 98.2; O2SAT 94
--- NOTE | 2018-08-18 00:07 | CP.PCM.DIS ---
Provider - Provider Date of Admission: 08/16/18 08:41 Attending physician: Hayder Ernandez MD Primary care physician: Hayder Ernandez MD Consults: 08/16/18 11:49 Neuro Surgery Consult Stat Comment: Consulting Provider: Ady Villanueva Consulting Physician: Ady Villanueva Reason for Consult: nsx eval 08/17/18 10:56 Case Management Referral Routine Comment: Physician Instructions: Reason For Exam: Reason for Referral: Discharge Planning Time Spent in preparation of Discharge (in minutes): 30 Diagnosis - Discharge Diagnosis (1) Back pain Status: Acute (2) Cervical spondylosis Status: Deleted Hospital Course - Lab Results Lab Results: Most Recent Lab Values WBC 6.9 K/uL (4.8-10.8) 08/16/18 10:06 RBC 6.53 Mil/uL (4.40-5.90) H 08/16/18 10:06 Hgb 12.3 g/dL (12.0-18.0) 08/16/18 10:06 Hct 39.9 % (35.0-51.0) 08/16/18 10:06 MCV 61.1 fl (80.0-94.0) L D 08/16/18 10:06 MCH 18.8 pg (27.0-31.0) L 08/16/18 10:06 MCHC 30.8 g/dL (33.0-37.0) L 08/16/18 10:06 RDW 17.5 % (11.5-14.5) H 08/16/18 10:06 Plt Count 148 K/uL (130-400) 08/16/18 10:06 MPV 9.2 fl (7.2-11.7) 08/16/18 10:06 Neut % (Auto) 48.3 % (50.0-75.0) L 08/16/18 10:06 Lymph % (Auto) 39.7 % (20.0-40.0) 08/16/18 10:06 [place] % (Auto) 7.7 % (0.0-10.0) 08/16/18 10:06 Eos % (Auto) 3.5 % (0.0-4.0) 08/16/18 10:06 Baso % (Auto) 0.8 % (0.0-2.0) 08/16/18 10:06 Neut # (Auto) 3.3 K/uL (1.8-7.0) 08/16/18 10:06 Lymph # (Auto) 2.8 K/uL (1.0-4.3) 08/16/18 10:06 [place] # (Auto) 0.5 K/uL (0.0-0.8) 08/16/18 10:06 Eos # (Auto) 0.2 K/uL (0.0-0.7) 08/16/18 10:06 Baso # (Auto) 0.1 K/uL (0.0-0.2) 08/16/18 10:06 PT 12.7 Seconds (9.8-13.1) 08/16/18 10:06 INR 1.1 08/16/18 10:06 APTT 35.3 Seconds (25.6-37.1) 08/16/18 10:06 Sodium 141 mmol/l (132-148) 08/16/18 10:06 Potassium 4.0 MMOL/L (3.6-5.0) 08/16/18 10:06 Chloride 104 mmol/L (98-107) 08/16/18 10:06 Carbon Dioxide 28 mmol/L (22-30) 08/16/18 10:06 Anion Gap 13 (10-20) 08/16/18 10:06 BUN 8 mg/dl (9-20) L 08/16/18 10:06 Creatinine 0.6 mg/dl (0.8-1.5) L 08/16/18 10:06 Est GFR ( Amer) > 60 08/16/18 10:06 Est GFR (Non-Af Amer) > 60 08/16/18 10:06 Random Glucose 94 mg/dL (75-110) 08/16/18 10:06 Calcium 9.1 mg/dL (8.4-10.2) 08/16/18 10:06 Total Bilirubin 0.7 mg/dl (0.2-1.3) 08/16/18 10:06 AST 83 U/L (17-59) H D 08/16/18 10:06 ALT 154 U/L (21-72) H D 08/16/18 10:06 Alkaline Phosphatase 53 U/L (38-126) 08/16/18 10:06 Troponin I < 0.0120 ng/mL (0.00-0.120) 08/16/18 10:06 Total Protein 7.5 G/DL (6.3-8.2) 08/16/18 10:06 Albumin 4.4 g/dL (3.5-5.0) 08/16/18 10:06 Globulin 3.1 gm/dL (2.2-3.9) 08/16/18 10:06 Albumin/Globulin Ratio 1.4 (1.0-2.1) 08/16/18 10:06 Blood Type O POSITIVE 08/16/18 17:38 Antibody Screen Negative 08/16/18 17:38 BBK History Checked Patient has bt 08/16/18 17:38 - Hospital Course Hospital Course: Pt presented to the ED with worsening back pain. He was admitted to the hospital, where he would have a T7-T8 laminectomy, microdiscectomy and posterolateral fusion done with Dr. Villanueva (neurosurgery). The pt had the procedure done and reported feeling well post-operatively. He was seen by neurosurgery and cleared for discharge with a left back MIKEL drain still in place. He will follow up with Dr. Villanueva this week to have the drain removed. Discharge Exam - Head Exam Head Exam: ATRAUMATIC, NORMOCEPHALIC - Eye Exam Eye Exam: EOMI, Normal appearance Pupil Exam: NORMAL ACCOMODATION - ENT Exam ENT Exam: Mucous Membranes Moist - Neck Exam Neck exam: Full Rom - Respiratory Exam Respiratory Exam: NORMAL BREATHING PATTERN - Cardiovascular Exam Cardiovascular Exam: REGULAR RHYTHM - GI/Abdominal Exam GI & Abdominal Exam: Normal Bowel Sounds - Extremities Exam Extremities exam: full ROM - Back Exam Back exam: vertebral tenderness - Neurological Exam Neurological exam: Alert, CN II-XII Intact, Oriented x3 - Psychiatric Exam Psychiatric exam: Normal Affect, Normal Mood - Skin Skin Exam: Dry, Intact Discharge Plan - Discharge Medications Prescriptions: Cephalexin [Keflex] 500 mg PO BID #10 capsule Cyclobenzaprine [Flexeril] 10 mg PO TID PRN #21 tab PRN Reason: Muscle Spasm Methylprednisolone [Medrol Dose Pack (21 tabs)] 4 mg PO DAILY #21 mg - Follow Up Plan Condition: STABLE Disposition: HOME/ ROUTINE Instructions: Laminectomy (DC), Postspine Surgery Precautions Referrals: Hayder Ernandez MD [Primary Care Provider] -
--- NOTE | 2018-08-18 00:18 | OP ---
PROCEDURE DATE: 08/17/2018 PREOPERATIVE DIAGNOSIS: Thoracic spondylosis. POSTOPERATIVE DIAGNOSIS: Thoracic spondylosis. PROCEDURE: T7-T8 thoracic laminectomy, T7-T8 posterolateral fusion. Fluoroscope has been used. Microscope has been used. SURGEON: Ady Villanueva MD. HR RECRUITER: Ge Phillips, physician assistant professor of religion. Ge Phillips helped me to perform the surgery, stayed throughout the case from the beginning to the end. DESCRIPTION OF PROCEDURE: The patient was brought to the operating room and anesthetized with general endotracheal anesthesia, placed on the Michael table. Care was taken to protect all pressure points. Back of the thoracic area was thoroughly prepped and draped in the same sterile manner after marking the skin incision for thoracic laminectomy. After prepping and draping the area, the skin had been incised. Bleeding skin had been controlled with bipolar machine setter and repairer. After using a Bovie machine setter and repairer, paraspinal muscles had been detached from the spinous process and lamina of T7-T8. Identification of the levels had been done with the help of fluoroscopy. Deep retractors had been applied. Under microscopic magnification, by using a Leksell rongeur, the spinous process of T7-T8 had been removed. By using a high-speed drill, the lamina of T7 had been drilled, and by using a fine Kerrison punch, all this thinned out showing the lamina, medial part of the facets. Ligamentum flavum, which was ossified in this area has been removed decompressing the area of T7-T8. At this point, lateral facet joint, T7-T8 had been decorticated. The bone that had been removed mixed with Fifi and placed in the area achieving a posterolateral fusion. After that, hemostasis was best achieved. Michael drain was placed in the wound and brought out through a separate stab neck skin incision. Muscles and fascia were closed with 1 Vicryl, subcutaneous tissue with 3-0 Vicryl and the skin with intradermal 3-0 Vicryl stitches. The patient tolerated the procedure. After the procedure, mobilized to the recovery room in stabilized condition. Ady Villanueva MD [facility] # [id number]
== END 2018-08-17 21:27 | disposition home or self-care (01) | DRG 460 ==
LOC: H.ER 08:12 → SUPCPDRO 08:12 → H.ERHOLD 08:41 → H.MEDSURG1 21:37
PROVIDERS: ADMIT Family Medicine; ATTEND Family Medicine
PROC: 0RG70J1 Fusion of 2 to 7 Thoracic Vertebral Joints with Synthetic Substitute, Posterior Approach, Posterior Column, Open Approach (ICD-10-PCS; 2018-08-17)
PROC: 0RB90ZZ Excision of Thoracic Vertebral Disc, Open Approach (ICD-10-PCS; principal; 2018-08-17 09:45)
DX: M47.814 Spondylosis without myelopathy or radiculopathy, thoracic region (principal); M47.812 Spondylosis without myelopathy or radiculopathy, cervical region; I10 Essential (primary) hypertension; G62.9 Polyneuropathy, unspecified